=== PATIENT | female | born 1970 | race Caucasian/White ===

== ENCOUNTER 2018-10-09 18:53 | Observation (INO) | payer SELFPAY ==
--- NOTE | 2018-10-09 19:49 | RAD REPORT ---
EXAM DESCRIPTION: RAD - Chest Single View - 10/09/2018 7:42 pm CLINICAL HISTORY: CHEST PAIN Chest pain. COMPARISON: No comparisons FINDINGS: Portable technique limits examination quality. Linear subsegmental atelectasis with trace pleural fluid noted left base. The lungs are otherwise jaime ar. The heart is upper limit normal in size with multilead pacer/defibrillator device present. No dis placed fractures. IMPRESSION: No acute intrathoracic process suspected.
[2018-10-09] MEDS ORDERED: FENTANYL CITR 100 MCG/2 ML ONE (20:20)
[2018-10-09 20:21] LABS: Absolute Lymphocytes (CBC) 2.2 K/uL (0.7-4.9); Absolute Monocytes 1.1 K/uL (0.1-1.3); Absolute Neutrophil 9.2 K/uL (1.8-8.0); Basophils % 0.9 % (0-1.3); Eosinophils % 0.1 % (0-4.4); Hematocrit 43.3 % (36.0-45.0); Lymphocytes % 17.2 % (15.3-44.8); MCH 33.1 pg (27.0-35.0); MCV 99.5 fL (80-100); MPV 10.8 fL (7.6-11.3); RBC Red Blood Cell Count 4.35 M/uL (3.86-4.86)
[2018-10-09 20:23] LABS: Protime INR 1.03
[2018-10-09 20:48] LABS: ALT/SGPT 42 U/L (12-78); AST/SGOT 50 U/L (15-37); Alkaline Phosphatase 238 U/L (45-117); BUN Blood Urea Nitrogen 5 mg/dL (7-18); Bicarbonate 25 mmol/L (21-32); Bilirubin Direct < 0.1 mg/dL (0-0.2); Bilirubin Total 0.3 mg/dL (0.2-1.0); Glucose Level 84 mg/dL (74-106); Magnesium 2.1 mg/dL (1.8-2.4); NT PRO-BNP 2753 pg/mL (<125); Potassium 3.3 mmol/L (3.5-5.1); Protein, Total 7.4 g/dL (6.4-8.2); Sodium Level 144 mmol/L (136-145); Troponin (Emerg Dept Use Only) 0.29 ng/mL (0.0-0.045)
--- NOTE | 2018-10-09 22:28 | ER ---
Nurse's Notes [facility] Emergency Department Name: Luly Gastelum Age: 48 yrs Sex: Female : 1970 Arrival Date: 10/09/2018 Time: 18:54 Bed 4 Private MD: Diagnosis: Chest pain, unspecified Presentation: 10/09 18:56 Presenting complaint: Patient states: L sided chest pain that began art approx 1 pm ph today, SOB, pain w/ respiration, and nausea, reports cardiac hx. Transition of care: patient was not received from another setting of care. Onset of symptoms was October 09, 2018. Risk Assessment: Do you want to hurt yourself or someone else? Patient reports no desire to harm self or others. Care prior to arrival: None. 18:56 Method Of Arrival: Ambulatory ph 18:56 Acuity: ALYX 2 ph 19:14 Initial Sepsis Screen: Does the patient meet any 2 criteria? No. Patient's initial ak1 sepsis screen is negative. Does the patient have a suspected source of infection? No. Patient's initial sepsis screen is negative. Historical: - Allergies: 19:02 No Known Allergies; ph - Home Meds: 19:20 metoprolol tartrate 25 mg Oral tab 1 tab 2 times per day [Active]; Lasix 40 mg Oral tab ak1 1 tab as needed [Active]; - PMHx: 19:02 Hypertrophic obstructive cardiomyopathy; Myocardial infarction; ph - PSHx: 19:02 pacemaker/defibrillator; ph - Immunization history:: Adult Immunizations unknown. - Social history:: Smoking status: Patient uses tobacco products, smokes one pack cigarettes per day. - Ebola Screening: : No symptoms or risks identified at this time. Screenin:15 Abuse screen: Denies threats or abuse. Denies injuries from another. Nutritional ak1 screening: No deficits noted. Tuberculosis screening: No symptoms or risk factors identified. Fall Risk None identified. Assessment: 19:12 General: Appears in no apparent distress. Behavior is calm, cooperative. Pain: ak1 Complains of pain in chest Pain does not radiate. Pain began 1300 today. Neuro: No deficits noted. Cardiovascular: Reports chest pain, nausea, since 1300 today. Respiratory: No deficits noted. GI: No signs and/or symptoms were reported involving the gastrointestinal system. : No signs and/or symptoms were reported regarding the genitourinary system. EENT: No signs and/or symptoms were reported regarding the EENT system. Derm: No signs and/or symptoms reported regarding the dermatologic system. Musculoskeletal: No signs and/or symptoms reported regarding the musculoskeletal system. 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 ak1 21:13 Reassessment: Patient appears in no apparent distress at this time. No changes from ak1 previously documented assessment. Patient and/or family updated on plan of care and expected duration. Pain level reassessed. Patient is alert, oriented x 3, equal unlabored respirations, skin warm/dry/pink. Patient states symptoms have improved. Vital Signs: 19:00 BP 133 / 90; Pulse 120; Resp 24; Temp 98.3; Pulse Ox 100% on R/A; Weight 47.63 kg; ph Height 5 ft. 4 in. (162.56 cm); Pain 8/10; 19:12 BP 123 / 83; Pulse 94; Resp 20; Pulse Ox 99% on R/A; ak1 20:18 BP 119 / 73; Pulse 89; Resp 20; Temp 98.3; Pulse Ox 98% on R/A; Pain 5/10; ak1 21:13 BP 122 / 77; Pulse 85; Resp 16; Pulse Ox 98% on R/A; ak1 23:20 BP 112 / 80; Pulse 72; Resp 16; Temp 98.1; Pulse Ox 98% on R/A; Pain 3/10; ak1 19:00 Body Mass Index 18.02 (47.63 kg, 162.56 cm) ph ED Course: 18:54 Patient arrived in ED. rg4 19:00 Triage completed. ph 19:02 Arm band placed on. ph 19:11 Ben Acosta MD is Attending Physician. gs 19:11 Callie Lynn, NILESH is Primary Nurse. ak1 19:11 Inserted saline lock: 20 gauge in left antecubital area, using aseptic technique. Blood ak1 collected. Patient maintains SpO2 saturation greater than 95% on room air. 19:14 Patient has correct armband on for positive identification. Placed in gown. Bed in low ak1 position. Call light in reach. Side rails up X 1. Adult w/ patient. potline monitor on. Pulse ox on. NIBP on. Door closed. Warm blanket given. 19:40 XRAY Chest (1 view) In Process Unspecified. EDMS 22:27 Rashard Heart MD is Hospitalizing Provider. gs 22:44 No provider procedures requiring assistance completed. Patient admitted, IV remains in ak1 place. Administered Medications: 20:17 Drug: fentaNYL (PF) 25 mcg Route: IVP; Site: left antecubital; ak1 21:14 Follow up: Response: No adverse reaction; Pain is decreased ak1 23:19 Drug: Aspirin Chewable Tablet 324 mg Route: PO; ak1 23:19 Follow up: Response: No adverse reaction ak1 Outcome: 22:27 Decision to Hospitalize by Provider. gs 23:21 Condition: stable ak1 23:21 Instructed on the need for admit. 10/10 00:09 Admitted to Tele accompanied by tech, via wheelchair, room 412, with chart. ak1 00:12 Patient left the ED. ak1 Signatures: Dispatcher [employer] EDMS Callie Lynn RN RN ak1 Jessy Leger RN RN ph Garcia, Rubi rg4 Ben Acosta MD MD gs
--- NOTE | 2018-10-09 22:28 | EDPHYS ---
Physician Documentation [facility] Name: Luly Gastelum Age: 48 yrs Sex: Female : 1970 Arrival Date: 10/09/2018 Time: 18:54 Bed 4 Private MD: ED Physician Ben Acosta HPI: 10/09 22:53 This 48 yrs old Female presents to ER via Ambulatory with complaints of Chest gs Pain. 22:53 The patient or guardian reports chest pain that is located primarily in the anterior gs chest wall. Onset: this morning. The pain does not radiate. Associated signs and symptoms: Pertinent positives: shortness of breath. The chest pain is described as a heaviness. Duration: The patient or guardian reports a single episode, that is still ongoing, and unchanged. Modifying factors: The symptoms are alleviated by nothing. the symptoms are aggravated by nothing. Severity of pain: At its worst the pain was moderate in the emergency department the pain is unchanged. The patient has experienced similar episodes in the past, multiple times, with the last episode occurring yesterday. Historical: - Allergies: 19:02 No Known Allergies; ph - Home Meds: 19:20 metoprolol tartrate 25 mg Oral tab 1 tab 2 times per day [Active]; Lasix 40 mg Oral tab ak1 1 tab as needed [Active]; - PMHx: 19:02 Hypertrophic obstructive cardiomyopathy; Myocardial infarction; ph - PSHx: 19:02 pacemaker/defibrillator; ph - Immunization history:: Adult Immunizations unknown. - Social history:: Smoking status: Patient uses tobacco products, smokes one pack cigarettes per day. - Ebola Screening: : No symptoms or risks identified at this time. ROS: 22:53 All other systems are negative. gs Exam: 22:53 Head/Face: Normocephalic, atraumatic. Eyes: Pupils equal round and reactive to light, gs extra-ocular motions intact. Lids and lashes normal. Conjunctiva and sclera are non-icteric and not injected. Cornea within normal limits. Periorbital areas with no swelling, redness, or edema. ENT: Nares patent. No nasal discharge, no septal abnormalities noted. Tympanic membranes are normal and external auditory canals are clear. Oropharynx with no redness, swelling, or masses, exudates, or evidence of obstruction, uvula midline. Mucous membranes moist. Neck: Trachea midline, no thyromegaly or masses palpated, and no cervical lymphadenopathy. Supple, full range of motion without nuchal rigidity, or vertebral point tenderness. No Meningismus. Chest/axilla: Normal chest wall appearance and motion. Nontender with no deformity. No lesions are appreciated. Cardiovascular: Regular rate and rhythm with a normal S1 and S2. No gallops, murmurs, or rubs. Normal PMI, no JVD. No pulse deficits. Respiratory: Lungs have equal breath sounds bilaterally, clear to auscultation and percussion. No rales, rhonchi or wheezes noted. No increased work of breathing, no retractions or nasal flaring. Abdomen/GI: Soft, non-tender, with normal bowel sounds. No distension or tympany. No guarding or rebound. No evidence of tenderness throughout. Back: No spinal tenderness. No costovertebral tenderness. Full range of motion. Skin: Warm, dry with normal turgor. Normal color with no rashes, no lesions, and no evidence of cellulitis. MS/ Extremity: Pulses equal, no cyanosis. Neurovascular intact. Full, normal range of motion. Neuro: Awake and alert, GCS 15, oriented to person, place, time, and situation. Cranial nerves II-XII grossly intact. Motor strength 5/5 in all extremities. Sensory grossly intact. Cerebellar exam normal. Normal gait. 22:53 Constitutional: The patient appears alert, awake. 22:53 ECG was reviewed by the Attending Physician. Vital Signs: 19:00 BP 133 / 90; Pulse 120; Resp 24; Temp 98.3; Pulse Ox 100% on R/A; Weight 47.63 kg; ph Height 5 ft. 4 in. (162.56 cm); Pain 8/10; 19:12 BP 123 / 83; Pulse 94; Resp 20; Pulse Ox 99% on R/A; ak1 20:18 BP 119 / 73; Pulse 89; Resp 20; Temp 98.3; Pulse Ox 98% on R/A; Pain 5/10; ak1 21:13 BP 122 / 77; Pulse 85; Resp 16; Pulse Ox 98% on R/A; ak1 23:20 BP 112 / 80; Pulse 72; Resp 16; Temp 98.1; Pulse Ox 98% on R/A; Pain 3; ak1 19:00 Body Mass Index 18.02 (47.63 kg, 162.56 cm) ph MDM: 19:28 Patient medically screened. 22:53 Differential diagnosis: acute myocardial infarction, coronary artery disease chest wall gs pain, unstable angina. The patient was given aspirin in the Emergency Department. Data reviewed: vital signs, nurses notes. Counseling: I had a detailed discussion with the patient and/or guardian regarding: the historical points, exam findings, and any diagnostic results supporting the discharge/admit diagnosis, lab results, radiology results, the need for outpatient follow up. Response to treatment: the patient's symptoms have resolved after treatment, the patient's pain is gone. 10/09 19:29 Order name: Basic Metabolic Panel; Complete Time: 20:55 10/09 19:29 Order name: CBC with Diff; Complete Time: 20:55 10/09 19:29 Order name: LFT's; Complete Time: 20:55 10/09 19:29 Order name: Magnesium; Complete Time: 20:55 10/09 19:29 Order name: NT PRO-BNP; Complete Time: 20:55 10/09 19:29 Order name: PT-INR; Complete Time: 20:55 10/09 19:29 Order name: Troponin (emerg Dept Use Only); Complete Time: 20:55 10/09 19:29 Order name: XRAY Chest (1 view); Complete Time: 20:07 10/09 19:29 Order name: EKG; Complete Time: 19:30 10/09 19:29 Order name: Cardiac monitoring; Complete Time: 20:07 10/09 19:29 Order name: EKG - Nurse/Tech; Complete Time: 20:09 10/09 19:29 Order name: IV Saline Lock; Complete Time: 20:09 10/09 19:29 Order name: Labs collected and sent; Complete Time: 20:10 10/09 19:29 Order name: O2 Per Protocol; Complete Time: 20:10 10/09 19:29 Order name: O2 Sat Monitoring; Complete Time: 20:10 EC:53 Rate is 101 beats/min. Rhythm is regular. IA interval is normal. QRS interval is gs normal. QT interval is normal. T waves are Inverted. Clinical impression: NSR w/ Non-specific ST/T Changes. Interpreted by me. Administered Medications: 20:17 Drug: fentaNYL (PF) 25 mcg Route: IVP; Site: left antecubital; ak1 21:14 Follow up: Response: No adverse reaction; Pain is decreased ak1 23:19 Drug: Aspirin Chewable Tablet 324 mg Route: PO; ak1 23:19 Follow up: Response: No adverse reaction ak1 Disposition: 22:53 Critical Care:. Disposition: 10/09/18 22:27 Hospitalization ordered by Rashard Heart for Observation. Preliminary diagnosis is Chest pain, unspecified. - Bed requested for Telemetry/MedSurg (observation). - Status is Observation. ak1 - Condition is Stable. - Problem is new. - Symptoms have improved. UTI on Admission? No Critical care time excluding procedures: 22:53 Critical care time: Bedside Care: 10 minutes, Consultation: 10 minutes, Family gs Intervention: 10 minutes. Total time: 30 minutes Signatures: Dispatcher [employer] EDZahira Alves RN RN bb Krenek, Amber, RN RN akJessy Ortiz RN RN Ben Acosta MD MD Corrections: (The following items were deleted from the chart) 23:49 22:27 Hospitalization Ordered by Rashard Heart MD for Observation. Preliminary bb diagnosis is Chest pain, unspecified. Bed requested for Telemetry/MedSurg (observation). Status is Observation. Condition is Stable. Problem is new. Symptoms have improved. UTI on Admission? No. gs 10/10 00:12 10/09 23:49 10/09/2018 22:27 Hospitalization Ordered by Rashard Heart MD for ak1 Observation. Preliminary diagnosis is Chest pain, unspecified. Bed requested for Telemetry/MedSurg (observation). Status is Observation. Condition is Stable. Problem is new. Symptoms have improved. UTI on Admission? No. bb
[2018-10-09] MEDS ORDERED: ASPIRIN 81 MG CHEWABLE TABLET ONE (23:25)
[2018-10-10] MEDS ORDERED: ACETAMINOPHEN 500 MG TAB PO PRN (00:16)
[2018-10-10 00:57] VITALS: O2SAT 98
[2018-10-10 01:34] LABS: Troponin I 0.34 ng/mL (0.0-0.045)
[2018-10-10 02:27] VITALS: BMI 18.0
[2018-10-10 04:20] LABS: Urine Appearance CLEAR; Urine Blood NEGATIVE (NEG); Urine Color DK YELLOW; Urine Glucose NEGATIVE (NEG); Urine Protein TRACE (NEG); Urine Specific Gravity >=1.030 (1.005-1.030); Urine Urobilinogen 0.2 mg/dL (0.2-1.0)
[2018-10-10 04:28] LABS: Urine Bilirubin NR (NEG); Urine Microscopic Reflex ORDER UMIC
[2018-10-10] MEDS: TRAMADOL HCL 50 MG TAB PO PRN ×3 (04:51→21:35)
--- NOTE | 2018-10-10 05:09 | P.HP ---
Certification for Inpatient Patient admitted to: Observation With expected LOS: <2 Midnights Practitioner: I am a practitioner with admitting privileges, knowledge of patient current condition, hospital course, and medical plan of care. Services: Services provided to patient in accordance with Admission requirements found in Title 42 Section 412.3 of the Code of Federal Regulations Patient History Date of Service: 10/09/18 Reason for admission: Chest pain History of Present Illness: Ms Nirav Morales ear a history of HOCM, ICD placement, who came to ER complaining of chest pain starting a few hr ago. The pain was 7/10 of intensity located retrosternally, pressure-like, not radiated, associated with shortness of breath. She denied any nausea or diaphoresis. She has never had this kind of pain before. Lab work remarkable for leukocytosis, hypokalemia, troponin I elevation. EKG sinus rate with nonspecific ST-T abnormality. Allergies No Known Allergies Allergy (Verified 10/10/18 00:41) Home medications list reviewed: Yes Home Medications: Furosemide [Lasix] 1 tab PO BID 10/10/18 Metoprolol Tartrate 1 tab PO BID 10/10/18 - Past Medical/Surgical History Diabetic: No -: myocardial infarction -: hypertrophic obstructive cardiopathy -: pacemaker, cardioverted, defibrillator -: partial hysterectomy -: removal of tumor on the neck April 2018 -: Laparoscopy ovarian cyst removed - Family History Mother -: Heart disease, Other (see notes) Notes: heart transplant Father -: Cancer - Social History Smoking Status: Current every day smoker Counseled patient to stop smoking for: less than 10 minutes Alcohol use: Yes CD- Drugs: No Caffeine use: Yes Place of Residence: Home Review of Systems 10-point ROS is otherwise unremarkable Physical Examination - Vital Signs Temperature: 97.4 F Blood Pressure: 106/55 Pulse: 60 Respirations: 20 Pulse Ox (%): 95 - Physical Exam General: Alert, In no apparent distress HEENT: Atraumatic, PERRLA, Mucous membr. moist/pink, EOMI, Sclerae nonicteric Neck: Supple, 2+ carotid pulse no bruit, No LAD, Without JVD or thyroid abnormality Respiratory: Clear to auscultation bilaterally, Normal air movement Cardiovascular: Regular rate/rhythm, Normal S1 S2, Systolic murmur Gastrointestinal: Normal bowel sounds, No tenderness Musculoskeletal: No tenderness Integumentary: No rashes Neurological: Normal speech, Normal strength at 5/5 x4 extr, Normal tone, Normal affect Lymphatics: No axilla or inguinal lymphadenopathy - Studies Laboratory Data (last 24 hrs) 10/09/18 20:00: PT 12.2, INR 1.03 10/09/18 20:00: WBC 12.6 H, Hgb 14.4, Hct 43.3, Plt Count 263 10/09/18 20:00: Sodium 144, Potassium 3.3 L, BUN 5 L, Creatinine 0.60, Glucose 84, Magnesium 2.1, Total Bilirubin 0.3, AST 50 H, ALT 42, Alkaline Phosphatase 238 H Assessment and Plan - Problems (Diagnosis) (1) Chest pain Current Visit: Yes Status: Acute Qualifiers: Chest pain type: precordial pain Qualified Code(s): R07.2 - Precordial pain (2) NSTEMI (non-ST elevated myocardial infarction) Current Visit: Yes Status: Acute (3) HOCM (hypertrophic obstructive cardiomyopathy) Current Visit: Yes Status: Acute - Plan The patient will be admitted to the hospital due to typical chest pain with elevated troponin I without ST-elevation EKG, consistent with non ST elevation GA. Will order statins, aspirin, beta-victor hugo (if BP allows it), full anticoagulation. Will order an ECHO, consult Cardiology team. - Advance Directives Does patient have a Living Will: No Does patient have a Durable POA for Healthcare: No - Code Status/Comfort Care Code Status Assessed: Yes Code Status: Full Code
[2018-10-10 05:36] LABS: Urine Amorphous Sediment TRACE /HPF (NONE SEEN); Urine Bacteria <20 /HPF (<20); Urine Culture Reflex Order REFLEXED; Urine Mucus HEAVY /HPF (NONE SEEN); Urine RBC NONE SEEN /HPF (NONE SEEN)
[2018-10-10] MEDS: ENOXAPARIN 60 MG/0.6 ML SQ SCH ×2 (06:03→17:28)
--- NOTE | 2018-10-10 06:04 | EKG ---
Test Date: 2018-10-10 Test Time: 03:54:22 Display Screen Fabricator: RT MEASUREMENT RESULTS: Intervals: Rate: 63 MO: 188 QRSD: 90 QT: 478 QTc: 489 [place]: P: 61 MO: 188 QRS: 26 T: 132 INTERPRETIVE STATEMENTS: Normal sinus rhythm Possible Left atrial enlargement ST & T wave abnormality, consider lateral ischemia Prolonged QT Abnormal ECG No previous ECG available for comparison Electronically Signed On 10-10-18 06:03:30 ADVANCED CLINICAL SPECIALIST by Loi Kaminski
[2018-10-10] MEDS ORDERED: INFLUENZA VACCINE (for 3y+) 0.5 ML DOSE IMVAC ONE (08:00)
[2018-10-10] MEDS ORDERED: ENOXAPARIN 40 MG/0.4 ML SQ SCH (09:00)
[2018-10-10] MEDS ORDERED: NA CHLORIDE 0.9% 500 ML IV ONE (09:30)
[2018-10-10] MEDS: ASPIRIN EC 81 MG TAB PO SCH (09:40)
--- NOTE | 2018-10-10 10:10 | EKG ---
Test Date: 2018-10-09 Test Time: 19:08:22 Missile Technician: PURA MEASUREMENT RESULTS: Intervals: Rate: 101 [place]: 170 QRSD: 90 QT: 378 QTc: 490 [place]: P: 73 OH: 170 QRS: 44 T: 90 INTERPRETIVE STATEMENTS: Sinus tachycardia Left atrial enlargement Nonspecific T wave abnormality Abnormal ECG No previous ECG available for comparison Electronically Signed On 10-10-18 10:09:22 SEISMOGRAPH COMPUTER by Loi Kaminski
--- NOTE | 2018-10-10 11:26 | ECHO ---
HEIGHT: 5 ft 4 in WEIGHT: 105 lb 0 oz DATE OF STUDY: 10/10/[address]: Rashard Dixon MD 2-DIMENSIONAL: YES M.MODE: YES DOPPLER: YES COLOR FLOW: YES TDS: NO PORTABLE: NO DEFINITY: NO BUBBLE STUDY: NO DIAGNOSIS: CHEST PAIN CARDIAC HISTORY: CATHERIZATION: NO SURGERY: YES PROSTHETIC VALVE: NO PACEMAKER: YES MEASUREMENTS (cm) DIASTOLIC (NORMALS) SYSTOLIC (NORMALS) IVSd 1.6 (0.6-1.2) LA Diam 4.7 (1.9-4.0) LVEF 60-69% LVIDd 3.9 (3.5-5.7) LVIDs 2.8 (2.0-3.5) %FS 29% LVPWd 0.8 (0.6-1.2) Ao Diam 2.9 (2.0-3.7) 2 DIMENSIONAL ASSESSMENT: RIGHT ATRIUM: PACEMAKER LEFT ATRIUM: DILATED RIGHT VENTRICLE: PACEMAKER LEFT VENTRICLE: ASYMETRICAL SEPTAL HYPERTROPHY TRICUSPID VALVE: NORMAL MITRAL VALVE: SYSTOLIC ANTERIOR MOTION PULMONIC VALVE: NORMAL AORTIC VALVE: NORMAL PERICARDIAL EFFUSION: NONE AORTIC ROOT: NORMAL LEFT VENTRICULAR WALL MOTION: NORMAL DOPPLER/COLOR FLOW: MILD TRICUSPID REGURGITATION. MILD PULMONARY HYPERTENSION. ESTIMATED RIGHT VENTRICULAR SYSTOLIC PRESSURE 45 mmHg. IMPAIRED LEFT VENTRICULAR RELAXATION. NORMAL LEFT VENTRICULAR OUTFLOW TRACT GRADIENT <5 mmHg. COMMENTS: NORMAL LEFT VENTRICULAR EJECTION FRACTION. HYPERTROPHIC CARDIOMYOPATHY. PACEMAKER CATHETER IN RIGHT VENTRICLE. DILATE LEFT ATRIUM. IMPAIRED LEFT VENTRICULAR RELAXATION. MILD PULMONARY HYPERTENSION. TECHNOLOGIST: Hari KAUR
[2018-10-10] MEDS: DILTIAZEM HCL 60 MG TAB PO SCH ×2 (11:57→17:28)
--- NOTE | 2018-10-10 14:09 | CON ---
CARDIOLOGY CONSULT Chief Complaint: Chest pain. History Of Present Illness: Mrs. Gastelum has a long history of hypertrophic cardiomyopathy, very strong gene, several family members had it. Her sister and her aunt both had hypertrophic cardiomyopathy resulting in heart transplants. The patient has normal coronary arteries according to the cardiac cath within the past 2 years. She has a defibrillator, likely her second one. She is not known to have a decreased ejection fraction. Her only medicines are metoprolol and Lasix. She is a regular cigarette smoker and minimal alcohol. No illegal drugs. She came to the hospital because of chest pain. The pain has been there constantly for several days before she came. She has troponins that are elevated at the range of 0.3 to 0.4 and all of them are same so far, not a rise and fall pattern as one would see with an acute coronary syndrome. Physical Examination: General: She is 5 feet 4 inches, 105 pounds. HEENT: Normal. Lungs: Clear. Heart Exam: There is a systolic murmur. No diastolic murmur. Abdomen: Soft. Extremities: No edema, cyanosis, clubbing. Distal pulses palpable. Electrocardiogram shows sinus rhythm, left atrial abnormality, diffuse ST and T- wave abnormality. Impression: The patient's chest pain is from the cardiomyopathy she has. I think we can try diltiazem. I will talk with the [facility] transplant team that follows her to see if I can learn any other details which may be important. I will interrogate the defibrillator. I do not think we need to engage in a cardiac cath to rule out CAD. I just do not think that is what this is involved now. after seeing her echo we can see if she could tolerate diltiazem, it might be a better agent at controlling the chest pain than the metoprolol. MATTHEW/GAB Voice ID: [id number] Report ID: [id number] BRET
[2018-10-10] MEDS: FUROSEMIDE 40 MG TABLET PO SCH (17:28)
--- NOTE | 2018-10-10 18:23 | PN ---
Date of Progress Note: 10/10/2018 Subjective: The patient is seen and examined. Chart reviewed, and case discussed with RN and Dr. Kaminski. The patient states her chest pain has improved. Review of Systems: Negative except as above. Medications: List reviewed. Physical Examination: Vital Signs: Temperature 98.7, heart rate 70, blood pressure 112/79, respirations 16, O2 of 96% on room air. General: Awake, alert, oriented x3, in some mild distress, appears older than stated age. An ill-appearing female, cachectic, BMI 18. CV: S1 and S2. Regular rate and rhythm. Peripheral pulses present. Respiratory: Moving air well bilaterally. No wheezing or stridor. Gastrointestinal: Abdomen is soft, nontender, nondistended. Positive bowel sounds. No guarding or rigidity. Extremities: No clubbing, cyanosis, or edema. No calf tenderness. Neurologic: Nonfocal. Laboratory Data: Troponin 0.29, 0.34, 0.34. Triglycerides 52, cholesterol 67, LDL 22, HDL 35. Echocardiogram shows EF 60% to 69%, hypertrophic cardiomyopathy , pacemaker catheter in right ventricle, dilated left atrium, mild pulmonary hypertension. Assessment: 1. Chest pain Improved. No [id number] myocardial infarction per Cardiology. 2. Elevated troponin. No [id number] myocardial infarction. Related to her hypertrophic obstructive cardiomyopathy. The patient does not need catheterization at this time. 3. Status post pacemaker and defibrillator. The patient to be started on diltiazem. 4. Failure to thrive, BMI 18. 5. Neutrophilic leukocytosis. 6. Hypokalemia. We will replace and monitor. 7. Elevated liver enzymes. We will continue to monitor. 8. Gastrointestinal and deep venous thrombosis prophylaxis addressed. Plan: We will continue with home medications as appropriate. Appreciate Dr. Kaminski' input. We will monitor closely. Likely discharge in the next 24 to 48 hours depending on clinical response. /GAB Voice ID: [id number] Report ID: [id number] BRET
[2018-10-10] MEDS ORDERED: METOPROLOL TAR 25 MG TAB PO SCH (21:00)
[2018-10-11] MEDS: DILTIAZEM HCL 60 MG TAB PO SCH ×2 (00:35→05:45)
[2018-10-11] MEDS: TRAMADOL HCL 50 MG TAB PO PRN (04:51)
[2018-10-11] MEDS: ENOXAPARIN 60 MG/0.6 ML SQ SCH (05:45)
[2018-10-11 06:39] LABS: Absolute Lymphocytes (CBC) 1.2 K/uL (0.7-4.9); Absolute Monocytes 0.5 K/uL (0.1-1.3); Absolute Neutrophil 3.7 K/uL (1.8-8.0); Basophils % 0.8 % (0-1.3); Eosinophils % 0.7 % (0-4.4); Hematocrit 38.8 % (36.0-45.0); Lymphocytes % 22.2 % (15.3-44.8); MCH 33.3 pg (27.0-35.0); MCV 100.4 fL (80-100); MPV 10.3 fL (7.6-11.3); Monocytes % 9.4 % (3.3-12.3); RBC Red Blood Cell Count 3.86 M/uL (3.86-4.86)
[2018-10-11 06:46] LABS: ALT/SGPT 34 U/L (12-78); AST/SGOT 43 U/L (15-37); Albumin 2.6 g/dL (3.4-5.0); Alkaline Phosphatase 208 U/L (45-117); BUN Blood Urea Nitrogen 3 mg/dL (7-18); Bicarbonate 28 mmol/L (21-32); Bilirubin Total 0.4 mg/dL (0.2-1.0); Glucose Level 79 mg/dL (74-106); Protein, Total 6.3 g/dL (6.4-8.2); Sodium Level 144 mmol/L (136-145)
[2018-10-11] MEDS: ASPIRIN EC 81 MG TAB PO SCH (08:13)
[2018-10-11] MEDS: FUROSEMIDE 40 MG TABLET PO SCH (08:18)
[2018-10-11 08:19] VITALS: BP 103/68
[2018-10-11 08:54] VITALS: TEMP 97
[2018-10-11] MEDS ORDERED: ENSURE HIGH PROTEIN 237 ML CAN PO SCH (09:00)
[2018-10-11] MEDS ORDERED: POTASSIUM CL SA 10 MEQ TAB PO ONE (09:13)
--- NOTE | 2018-10-12 04:56 | DS ---
Date of Discharge: 10/11/2018 Integrative Medicine Physician: Loi Kaminski M.D., with Cardiology. Discharge Diagnoses: 1.Chest pain, resolved. 2.Elevated troponin, not ST-elevation myocardial infarction. 3.Status post pacemaker/defibrillator, interrogation showing fracture lead. 4.Hypertrophic cardiomyopathy with switch over to Cardizem. 5.Failure to thrive. Body mass index 18. 6.Neutrophilic leukocytosis, resolved. 7.Hypokalemia, replaced. 8.Elevated liver enzymes, improving. Hospital Course: The patient is a 48-year-old female with past medical history of hypertrophic cardi omyopathy and ICD placement, who comes in with chest pain. The patient had elevated troponin levels. However, Cardiology did not feel that this was NSTEMI and did not recommend any cardiac catheteriza tion related to her hypertrophic cardiomyopathy. The patient's pacemaker/defibrillator was interroga kelvin and did have a fractured lead. Dr. Kaminski recommended following up with the production leader, Dr. Jara, as outpatient. The patient's chest pain resolved. She did have some hypokalemia, which was replaced. She had mild elevation of her AST, which was trending down. The patient no longer levy d any chest pain. She was not having any nausea or vomiting. She did have some elevated white blood cell count with neutrophilia, which resolved, likely related to acute phase reactant. Her urine cul ture showed mixed sammy. The patient's echocardiogram showed EF of 60% to 69%, hypertrophic cardiomy opathy, and mild pulmonary hypertension. The patient was then cleared for discharge. She is to foll ow up with Dr. Kaminski immediately after discharge and given information to follow up with Dr. Jara, production leader, day after discharge. Medications: As per medication reconciliation list. The patient will be switched over to diltiazem. Stop metoprolol. She will receive some potassium replacement. Discharge Instructions: The patient is to have repeat potassium level in 1 week. Return to ER for w orsening condition. Follow up with fixture fabricator repairer, Dr. Kaminski, immediately after discharge. Follow up with medical front desk specialist, Dr. Jara, tomorrow. Establish care with PCP as soon as possible. Diet: Heart healthy. Activity: As tolerated. Physical Examination: General: Awake, alert, oriented, in no acute distress. CV: S1, S2. Normal pulses present. Respiratory: Moving air well bilaterally. Abdomen: Soft, nontender, and nondistended. Positive bowel sounds. Extremities: No clubbing, cyanosis, or edema. Neurologic: Nonfocal. SA/MODL Voice ID: [id number] Report ID: [id number]
--- NOTE | 2018-10-15 10:28 | PN ---
Date of Progress Note: 10/11/2018 The patient was seen on 10/11/2018 in followup. The patient had been seen by Dr. Kaminski on 8. She has a history of hypertrophic obstructive cardiomyopathy. Dr. Kaminski changed her beta-blocke rs to diltiazem because of chest pain. Defibrillator check showed a fracture of one of the leads. T he patient wants to go home today. She is going to stop by the office today, so we can make arrangem ents for her to see Dr. [facility] for her AICD dysfunction. OLI/GAB Voice ID: [id number] Report ID: [id number]
== END 2018-10-11 12:10 | disposition home or self-care (01) ==
LOC: ER 18:53 → ERHOLD 23:04 → 4TH 10-10 00:04
PROVIDERS: ADMIT Internal Medicine; ATTEND Internal Medicine
DX: R07.9 Chest pain, unspecified (principal); R79.89 Other specified abnormal findings of blood chemistry; E87.6 Hypokalemia; Z95.810 Presence of automatic (implantable) cardiac defibrillator; R62.7 Adult failure to thrive; D72.828 Other elevated white blood cell count; R74.8 Abnormal levels of other serum enzymes; I42.2 Other hypertrophic cardiomyopathy; Z23 Encounter for immunization
CPT/HCPCS: 36415; 71045; 80048; 80053; 80061; 80076; 81003; 81015; 83735; 83880; 84484; 85025; 85610; 87077; 87086; 87088; 87186; 93005; 93306; 96374; 99285; G0008; G0378; J1650; J3010; Q2035

== ENCOUNTER 2022-03-25 16:11 | Inpatient (IN) | payer SELFPAY ==
--- OUTSIDE RECORDS SUMMARY | 2022-03-25 16:13 | XMS REPORT | Continuity of Care Document ---
:1970 Author Organization [facility] t Address [address] [place] [address] Care Team Providers Name Role Phone Natividad MOSS, [facility] Primary Care Physician [phone] LADY NUNN Attending Clinician Unavailable [place] Kumari MD Attending Clinician MAR Attending Clinician Unavailable RODOLFO Attending Clinician Unavailable PAU Attending Clinician Unavailable BRIAN Attending Clinician Unavailable MD TANIA Attending Clinician Unavailable TANIA Attending Clinician Unavailable YASMINE Attending Clinician Unavailable MD RILEY UNDERWOOD Attending Clinician Unavailable Delonte_Tami Attending Clinician Unavailable BRIAN Admitting Clinician Unavailable MD TANIA Admitting Clinician Unavailable YASMINE Admitting Clinician Unavailable MD RILEY UNDERWOOD Admitting Clinician Unavailable Vini Admitting Clinician Unavailable Payers Payer Name Policy Type Policy Number Effective Date Expiration Date aLra ANDINO [id number] 2020 00:00:00 Problems Condition Condition Condition Status Onset Resolution Last Treating Co mments Source Name Details Category Date Date Treatment Clinician Date Pain in Pain in Problem Active 2019-11 [place] lower Left Lower 0-13 da limb Limb 00:00: Medical 00 Group Unexplaine Unexplaine Problem Active 2019-11 [facility] d weight d Weight 0-13 da loss Loss 00:00: Medical 00 Group Administra Administra Problem Active 2019-11 [facility] tion of tion of 0-13 da influenza Influenza 00:00: Medi per vaccine Vaccine 00 Group Administra Administra Problem Active 2019-11 [facility] tion of tion of 0-13 da diphtheria Diphtheria 00:00: Me dical , , 00 Group pertussis, Pertussis, and and tetanus Tetanus vaccine Vaccine Permanent Permanent Problem Active 2019-11 [facility] agor cardiac Cardiac 0-13 da pacemaker Pacemaker 00:00: Medi per 00 Group Adult Adult Problem Active 2019-11 [facility] 0-[facility] da examinatio Examinatio 00:00: Me dical n n 00 Group AICD lead AICD lead Disease Active [facility] displ[facility] displaceme 9-05 [facility] - nt nt 00:00: Medical 00 Center Chest wall Chest wall Disease Active [facility] pain [facility] Anxiety Anxiety Disease Active 2011-[address] [facility] associated associated 0-17 Stephanie kes - with with 00:00: Medical depression depression 00 Ce nter 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 Social History Social Habit Start Date Stop Date Quantity Comments Source History of tobacco Cigarette [facility] use [facility] Tobacco Comment off/on for [address] [facility] 4 m[facility] Alcohol Comment socially [facility] St [facility] Cigarettes smoked 2017-06-15 2017-06-[address] [facility] - current (pack per 00:00:00 00:00:00 Medical Center day) - Reported Cigarette 2017-06-15 2017-06-[address] [facility] - pack-years 00:00:00 00:00:00 [facility] Tobacco use and 2017-06-15 2017-06-[address] [facility] kes - exposure 00:00:00 00:00:00 [facility] Alcohol intake 2017-06-15 2017-06-15 Current drinker SAJAN S [facility] - 00:00:00 00:00:00 of alcohol Medical Center (finding) Sex Assigned At [birth year] [facility] 00:00:00 00:00:00 Smoking Status Start Date Stop Date Source Tobacco smoking consumption ID H ealth unknown Current every day smoker 2017-06-15 00:00:[address] [facility] Medications Ordered Filled Start Stop Current Ordering Indication Dosage Frequency Signature Comments Components Source Medication Medication Date Date Medication? Clinician (SIG) Name Name aspirin 325 Yes 325mg QD Take [address] MG tablet 9-06 mg by [facility] - 17:44: mouth Medical 17 daily. Center aspirin 325 Yes 325mg QD Take [address] MG tablet 9-06 mg by [facility] - 17:44: mouth Medical 17 daily. [place] clonazePAM 2011-11 Yes 1{tbl} QD Take [address] [address] (KLONOPIN) 0-16 tablet by Luke s - 0.5 MG 00:00: mouth Medical tablet 00 nightly Center States she does not take this medication . mometasone- 2011-11 Yes 1{puff} Q.5D Inhale [address] [address] formoterol 0-16 puff by [facility] - (DULERA) 00:00: mouth via Medi per 200-5 00 inhaler 2 Center mcg/actuati (two) on inhaler times daily States she does not take this medication . diphenhydra 2011-11 Yes 5mL Q.25D Take [address] [address] mine-phenyl 0-16 by mouth 4 Stephanie kes - ephrine 00:00: (four) Medical 25-7.5 mg/5 00 times Center mL Liqd daily States she does not take this medication . clonazePAM 2011-11 Yes 1{tbl} QD Take [address] (KLONOPIN) 0-16 tablet by Luke s - 0.5 MG 00:00: mouth Medical tablet 00 nightly Center States she does not take this medication . mometasone- 2011-11 Yes 1{puff} Q.5D Inhale [address] formoterol 0-16 puff by [facility] - (DULERA) 00:00: mouth via Medi per 200-5 00 inhaler 2 Center mcg/actuati (two) on inhaler times daily States she does not take this medication . diphenhydra 2011-11 Yes 5mL Q.25D Take [address] [address] mine-phenyl 0-16 by mouth 4 Stephanie kes - ephrine 00:00: (four) Medical 25-7.5 mg/5 00 times Center mL Liqd daily States she does not take this medication . Vital Signs Vital Name Observation Time Observation Value Comments Source BP Diastolic 2020-09-08 00:00:00 91 mm[Hg] [facility] Height 2020-09-08 00:00:00 63 [in_i] [facility] BMI (Body Mass 2020-09-08 00:00:00 17.1 kg/m2 [facility] Index) Group BP Systolic 2020-09-08 00:00:00 128 mm[Hg] [facility] Body Weight 2020-09-08 00:00:00 1545 [oz_av] [facility] Procedures Procedure Date / Time Performed Performing Clinician Sour e XR THORACIC SPINE 2 2021-08-05 18:27:40 [place] Kum[facility] VIEWS MAMMO, screening, 2020-09-08 00:00:00 [place] digital, bilateral Group XR, tibia + fibula 2020-09-08 00:00:00 [facility] US, duplex, venous, 2020-09-08 00:00:00 [facility] lower extremity Group Removal of Ovarian [place] [facility] Cyst(s) Group Cardiac Pacemaker [place] [facility] per Procedure Group Plan of Care Planned Activity Planned Date Details Comments Source Diagnostic Test 2020-09-08 CMP, serum or plasma [facility] Pending 00:00:00 [code = CMP, serum Group or plasma] Diagnostic Test 2020-09-08 lipid panel, serum [facility] Pending 00:00:00 [code = lipid panel, Group serum] Diagnostic Test 2020-09-08 CBC w/ auto diff [facility] Pending 00:00:00 [code = CBC w/ auto Group diff] Diagnostic Test 2020-09-08 TSH, serum or plasma [facility] Pending 00:00:00 [code = TSH, serum Group or plasma] Diagnostic Test 2020-09-08 hemoglobin A1c, QN, [facility] Pending 00:00:00 blood [code = Group hemoglobin A1c, QN, blood] Diagnostic Test 2020-09-08 urinalysis, complete [facility] Pending 00:00:00 [code = urinalysis, Group complete] Encounters Start End Encounter Admission Attending Care Care Encounter Source Date/Time Date/Time Type Type Clinicians Facility Department ID 2021-12-22 2021-12-22 Outpatient [facility] [id number] [place] 00:00:00 00:00:[address] 2021-11-26 2021-11-26 Emergency E ARLINE, BL BL 7503 BL 11:09:00 16:14:00 SHWETA 2021-09-09 2021-09-09 [facility] OP Kumari, EXT MSRDP [id number] ID 00:00:00 00:00:00 [place] [id number] [facility] [place] [id number] 2021-08-05 2021-08-05 [facility] OP Kumari, EXT MSRDP [id number] ID 00:00:00 00:00:00 [place] LOCATION [id number] H ealt [place] [id number] 2021-06-08 2021-06-08 Outpatient [facility] [id number] [place] 00:00:00 00:00:[address] 2021-04-30 2021-04-30 Outpatient WICKRAMASIN [facility] [id number] [place] 00:00:00 00:00:00 ANISHA, 978 [facility] SASRUTHA 2021-03-15 2021-03-15 Outpatient RODOLFO [facility] [id number] [place] 00:00:00 00:00:00 LONA [address] 2021-03-08 2021-03-08 Outpatient [facility] [id number] [place] 00:00:00 00:00:[address] 2021-03-01 2021-03-01 Outpatient RODOLFO [facility] [id number] [place] 00:00:00 00:00:00 LONA [address] 2021-02-22 2021-02-22 Outpatient RODOLFO, [facility] [id number] [place] 00:00:00 00:00:00 LONA [address] 2021-02-19 2021-02-19 Emergency LUISA MAI [facility] [id number] [place] 00:00:00 00:00:[address] 2021-02-17 2021-02-17 Outpatient RODOLFO [facility] [id number] [place] 00:00:00 00:00:00 LONA [address] 2021-02-15 2021-02-16 Outpatient BRIAN, [facility] [id number] [place] 00:00:00 00:00:00 GIAN [address] 2021-02-11 2021-02-11 Outpatient TANIA, [facility] [id number] [place] 00:00:00 00:00:00 APOOR [address] 2021-02-08 2021-02-08 Outpatient RODOLFO [facility] [id number] [place] 00:00:00 00:00:00 LONA [address] 2021-01-29 2021-01-29 Outpatient YASMINE, [facility] [id number] [place] 00:00:00 00:00:00 YUE [address] 2021-01-18 2021-01-19 Inpatient BRIAN, [facility] [id number] [place] 00:00:00 00:00:00 GIAN [address] 2021-01-15 2021-01-15 Outpatient YASMINE, [facility] [id number] [place] 00:00:00 00:00:00 YUE [address] 2021-01-15 2021-01-15 Outpatient YASMINE, [facility] [id number] [place] 00:00:00 00:00:00 YUE [address] 2020-11-09 2020-11-09 Outpatient MARIN, [facility] [id number] [place] 00:00:00 00:00:00 APOOR [address] 2020-11-09 2020-11-09 Outpatient YASMINE, [facility] [id number] [place] 00:00:00 00:00:00 YUE [address] 2020-10-14 2020-10-14 Outpatient [facility] [id number] [place] 02:48:00 02:48:00 1118 Medical Group 2020-10-09 2020-10-09 Outpatient MARIN, [facility] [id number] [place] 00:00:00 00:00:00 APOOR 911 [facility] i 2020-10-09 2020-10-09 Outpatient [facility] [id number] [place] 00:00:00 00:00:00 582 [facility] i 2020-10-09 2020-10-09 Outpatient WICKRAMASIN [facility] [id number] [place] 00:00:00 00:00:00 GHE, 583 [facility] i SASRUTHA 2020-09-08 2020-09-08 Outpatient [facility] [id number] [place] 11:21:00 11:21:00 1013 [facility] 2020-09-08 2020-09-08 Marek Kim [facility] [place] - [id number] M at[place]or 00:00:00 00:00:00 MD Tami: [address] [place] [address], [facility], [place] [address] , Ph. 2020-09-07 2020-09-07 Outpatient [facility] [id number] [place] 05:08:00 05:08:00 1012 [facility] 2020-09-01 2020-09-01 Outpatient [facility] [id number] [place] 10:51:00 10:51:00 1006 [facility] Results Test Description Test Time Test Comments Results Result Comments Source SARS-CoV-2 (COVID-19) RNA [Presence] in Respiratory sp ecimen by 2021-02-11 23:07:47 CLAY with probe detection Test Item Value Reference Range Interpretation Comme nts SARS-CoV-2 (COVID-19) RNA [Presence] in Respiratory Not detected No t-Detected specimen by CLAY with probe detection (test code = 20666-5) SARS-CoV-2 (COVID-19) RNA [Presence] in Respiratory specimen by CLAY with probe [id number] 00:28:16 Test Item Value Reference Range Interpretation Comments SARS-CoV-2 (COVID-19) RNA Not detected Not-Detected [Presence] in Respiratory specimen by CLAY with probe detection (test code = 10632-8)
[2022-03-25 17:16] LABS: Absolute Lymphocytes (CBC) 1.4 K/uL (0.7-4.9); Hematocrit 33.1 % (36.0-45.0); Lymphocytes % 19.3 % (15.3-44.8); MPV 8.6 fL (7.6-11.3); RBC Red Blood Cell Count 3.26 M/uL (3.86-4.86)
[2022-03-25 17:18] LABS: Protime INR 1.12
[2022-03-25 17:35] LABS: BUN Blood Urea Nitrogen 6 mg/dL (7-18); Bicarbonate 21 mmol/L (21-32); Glucose Level 90 mg/dL (74-106); NT PRO-BNP 2438 pg/mL (<125); Potassium 3.2 mmol/L (3.5-5.1); Sodium Level 144 mmol/L (136-145)
[2022-03-25 17:37] LABS: Troponin High Sensitivity 196.8 pg/mL (<58.9)
--- NOTE | 2022-03-25 18:08 | RAD REPORT ---
EXAM DESCRIPTION: Yolanda Single View03/25/2022 5:12 pm CLINICAL HISTORY: Chest pain COMPARISON: 2018 FINDINGS: Small to moderate right pleural effusion with basilar atelectasis Left lung appears grossly clear. Heart is mildly enlarged. Malposition of pacemaker lead and battery suspected. The tip of the pacemaker lead lies above the lev el of the aortic arch. The battery pack overlies the lower left hemithorax. IMPRESSION: Malposition of pacemaker lead and battery suspected. Small to moderate right pleural effusion
--- NOTE | 2022-03-25 18:20 | RAD REPORT ---
EXAM DESCRIPTION: USExtrem Venous W Compress Bil03/25/2022 5:59 pm CLINICAL HISTORY: Leg swelling COMPARISON: none FINDINGS: The common femoral, superficial femoral, popliteal and posterior tibial veins bilaterally are compressible and demonstrate augmentation. Doppler demonstrates good flow. Grayscale, color and spectral analysis performed on all vessels IMPRESSION: No evidence of deep venous thrombosis involving either lower extremity.
[2022-03-25] MEDS ORDERED: FUROSEMIDE 40 MG/4 ML VIAL ONE (18:24)
--- NOTE | 2022-03-25 18:34 | ER ---
Nurse's Notes [facility] Name: Luly Gastelum Age: 51 yrs Sex: Female : 1970 Arrival Date: 03/25/2022 Time: 16:12 Bed 13 Private MD: Diagnosis: Congestive heart failure;Peripheral edema Presentation: 03/25 16:33 Chief complaint: Patient states: swelling in all four extremities , has been taking her iw Lasix and it's not helping, has hx of hypertrophic cardiomyopathy, also has some bruising on her arms. Coronavirus screen: At this time, the client does not indicate any symptoms associated with coronavirus-19. Ebola Screen: Patient negative for fever greater than or equal to 101.5 degrees Fahrenheit, and additional compatible Ebola Virus Disease symptoms Patient denies exposure to infectious person. Patient denies travel to an Ebola-affected area in the 21 days before illness onset. No symptoms or risks identified at this time. Initial Sepsis Screen: Does the patient meet any 2 criteria? No. Patient's initial sepsis screen is negative. Does the patient have a suspected source of infection? No. Patient's initial sepsis screen is negative. Risk Assessment: Do you want to hurt yourself or someone else? Patient reports no desire to harm self or others. Onset of symptoms was March 18, 2022. 16:33 Method Of Arrival: Wheelchair iw 16:33 Acuity: ALYX 3 iw Historical: - Allergies: 16:35 No Known Allergies; iw - Home Meds: 16:35 Lasix 40 mg Oral tab 1 tab as needed [Active]; metoprolol tartrate 25 mg Oral tab 1 tab iw 2 times per day [Active]; Cardizem 180 mg Oral daily [Active]; - PMHx: 16:35 Hypertrophic obstructive cardiomyopathy; Myocardial infarction; iw - PSHx: 16:35 defib replacement; iw - Immunization history:: Client reports having NOT received the Covid vaccine. - Social history:: Smoking status: Patient reports the use of cigarette tobacco products, denies chronic smoking, but will smoke occasionally. Screenin:22 Abuse screen: Denies threats or abuse. Denies injuries from another. Nutritional ww screening: No deficits noted. Tuberculosis screening: No symptoms or risk factors identified. Fall Risk None identified. 19:30 Fall Risk Fall in past 12 months (25 points). No secondary diagnosis (0 pts). IV access ke1 (20 points). Ambulatory Aid- None/Bed Rest/Nurse Assist (0 pts). Gait- Normal/Bed Rest/Wheelchair (0 pts) Mental Status- Oriented to own ability (0 pts). Total Nathan Fall Scale indicates High Risk Score (45 or more points). Fall prevention measures have been instituted. Side Rails Up X 2 Frequent Obs/Assessments Occuring As available patient and family educated on Fall Prevention Program and Strategies. Assessment: 17:22 General: Appears in no apparent distress. Behavior is calm, cooperative. Neuro: Level ww of Consciousness is awake, alert, obeys commands, Oriented to person, place, time, situation, Moves all extremities. Cardiovascular: Patient's skin is warm and dry. pacemaker pocket in the left back and pacer wires run down sternally. bilateral lower extremity edema. Rhythm is regular. Respiratory: Airway is patent Respiratory effort is even, unlabored, Respiratory pattern is regular, symmetrical. GI: No signs and/or symptoms were reported involving the gastrointestinal system. Abdomen is non-distended, Abd is soft and non tender. : No signs and/or symptoms were reported regarding the genitourinary system. Derm: Skin is intact, is thin, has lesions on multiple purple lesions on bilateral forearms. 18:38 Reassessment: Patient appears in no apparent distress at this time. No changes from ww previously documented assessment. Patient and/or family updated on plan of care and expected duration. Pain level reassessed. Patient is alert, oriented x 3, equal unlabored respirations, skin warm/dry/pink. Respiratory: Breath sounds are coarse. 19:10 Reassessment: Patient and/or family updated on plan of care and expected duration. Pain ke1 level reassessed. Patient is alert, oriented x 3, equal unlabored respirations, skin warm/dry/pink. Pain: Denies pain. 19:30 Derm: abrasion on back of head. ke1 19:30 Neuro: Level of Consciousness is awake, alert, obeys commands, Oriented to person, ke1 place, time, situation, Denies weakness blurred vision dizziness. Respiratory: Airway is patent Respiratory effort is even, unlabored. 03/26 05:35 Pain: Complains of pain in headache Pain currently is 4 out of 10 on a pain scale. ke1 Vital Signs: 03/25 16:33 BP 97 / 70; Pulse 87; Resp 18; Temp 99.1; Pulse Ox 100% on R/A; Weight 37.65 kg; Height iw 5 ft. 4 in. (162.56 cm); 17:22 BP 102 / 66; Pulse 74; Resp 18; ww 18:40 BP 93 / 76; Pulse 81; Resp 21; Pulse Ox 97% on R/A; ww 16:33 Body Mass Index 14.25 (37.65 kg, 162.56 cm) ED Course: 16:12 Patient arrived in ED. as 16:35 Triage completed. iw 16:37 Arm band placed on. 16:38 Wade Hong PA is PHCP. [facility] 16:38 Adalid Rachel MD is Attending Physician. [facility] 16:59 Ruth Izquierdo, RN is Primary Nurse. ww 17:14 XRAY Chest (1 view) In Process Unspecified. EDMS 17:22 Patient has correct armband on for positive identification. Bed in low position. Call ww light in reach. Side rails up X2. desk monitor on. Pulse ox on. NIBP on. 17:22 Initial lab(s) drawn, by mo, EKG done, by ED staff. Inserted saline lock: 20 gauge in left antecubital area, using aseptic technique. Blood collected. 18:01 US Extremity Venous W Compression Kenneth In Process Unspecified. EDMS 18:32 Benjamin Cherry MD is Hospitalizing Provider. [facility] 23:00 No provider procedures requiring assistance completed. Patient admitted, IV remains in ke1 place. Administered Medications: 18:28 Drug: Lasix (furosemide) 20 mg Route: IVP; Site: left antecubital; 18:28 Drug: Lasix (furosemide) 20 mg Route: IVP; Site: left antecubital; Outcome: 18:33 Decision to Hospitalize by Provider. [facility] 23:00 Admitted to Med/surg accompanied by tech. ke 23:00 Condition: stable 23:00 Instructed on the need for admit. 23:51 Patient left the ED. [facility] Signatures: Dispatcher [employer] EDMS Wade Hong PA PA jmm Martinez, Amelia as Williams, Irene, RN RN Ruth Izquierdo RN RN Ebrottie, Kouassi, RN RN ke1 Corrections: (The following items were deleted from the chart) 16:38 16:33 BP 127 / 100; Pulse 87bpm; Resp 18bpm; Pulse Ox 100% RA; Temp 99.1F; 37.65 kg; iw Height 5 ft. 4 in.; BMI: 14.2; iw 03/26 05:36 03/25 19:30 Derm: abrasion on back of head ke1 ke1
--- NOTE | 2022-03-25 18:34 | EDPHYS ---
Physician Documentation [facility] Name: Luly Gastelum Age: 51 yrs Sex: Female : 1970 Arrival Date: 03/25/2022 Time: 16:12 Bed 13 Private MD: ED Physician Adalid Rachel HPI: 03/25 16:52 This 51 yrs old Female presents to ER via Wheelchair with complaints of swelling. jmm 16:52 The patient presents with swelling. The complaints affect the. Onset: The jmm symptoms/episode began/occurred gradually, 1 week(s) ago. Modifying factors: The symptoms are alleviated by nothing. the symptoms are aggravated by nothing. This is a 51-year-old female with history of hypertrophic cardiomyopathy, myocardial infarction the presents emerged department with complaints of diffuse extremity swelling worsening over the past week. Patient has taken prescribed furosemide without any relief and states it has not increased her urination. Historical: - Allergies: 16:35 No Known Allergies; iw - Home Meds: 16:35 Lasix 40 mg Oral tab 1 tab as needed [Active]; metoprolol tartrate 25 mg Oral tab 1 tab iw 2 times per day [Active]; Cardizem 180 mg Oral daily [Active]; - PMHx: 16:35 Hypertrophic obstructive cardiomyopathy; Myocardial infarction; iw - PSHx: 16:35 defib replacement; iw - Immunization history:: Client reports having NOT received the Covid vaccine. - Social history:: Smoking status: Patient reports the use of cigarette tobacco products, denies chronic smoking, but will smoke occasionally. ROS: 16:52 Constitutional: Negative for fever, chills, and weight loss, Cardiovascular: Negative jmm for chest pain, palpitations, and edema, Respiratory: Negative for shortness of breath, cough, wheezing, and pleuritic chest pain. 16:52 MS/extremity: Positive for swelling. 16:52 All other systems are negative. Exam: 16:52 Constitutional: This is a well developed, well nourished patient who is awake, alert, jmm and in no acute distress. Head/Face: atraumatic. Eyes: EOMI, no conjunctival erythema appreciated ENT: Moist Mucus Membranes Neck: Trachea midline, Supple Chest/axilla: Normal chest wall appearance and motion. Cardiovascular: Regular rate and rhythm. No edema appreciated Respiratory: Normal respirations, no respiratory distress appreciated Abdomen/GI: Non distended, soft Back: Normal ROM Skin: General appearance color normal 16:52 Musculoskeletal/extremity: Edema noted to all 4 extremities, full dorsalis pedis pulse bilaterally, full radial pulse bilaterally, full loom tuner strength, full range of motion, compartments are soft, neurovascular intact. 16:52 Skin: Appearance: Color: normal in color. 16:52 Neuro: Orientation: is normal, Mentation: is normal, Memory: is normal. 16:52 Psych: Behavior/mood is pleasant, cooperative. Vital Signs: 16:33 BP 97 / 70; Pulse 87; Resp 18; Temp 99.1; Pulse Ox 100% on R/A; Weight 37.65 kg; Height iw 5 ft. 4 in. (162.56 cm); 17:22 BP 102 / 66; Pulse 74; Resp 18; ww 18:40 BP 93 / 76; Pulse 81; Resp 21; Pulse Ox 97% on R/A; ww 16:33 Body Mass Index 14.25 (37.65 kg, 162.56 cm) iw MDM: 16:52 Patient medically screened. [facility] 18:32 Data reviewed: vital signs, nurses notes. Counseling: I had a detailed discussion with klaudia the patient and/or guardian regarding: the historical points, exam findings, and any diagnostic results supporting the discharge/admit diagnosis, lab results, the need for further work-up and treatment in the hospital. ED course: I discussed the patient with Jeremias Ace whom accepted the patient to Dr. Jo Ann calderon. 03/25 16:54 Order name: Basic Metabolic Panel; Complete Time: 17:45 [facility] 03/25 16:54 Order name: CBC with Diff; Complete Time: 17:19 [facility] 03/25 16:54 Order name: NT PRO-BNP; Complete Time: 17:45 [facility] 03/25 16:54 Order name: PT-INR; Complete Time: 17:19 [facility] 03/25 16:54 Order name: Troponin HS; Complete Time: 17:45 [facility] 03/25 17:50 Order name: SARS-COV-2 RT PCR (Document "Date of Onset" if Symptomatic) [facility] 03/25 16:54 Order name: XRAY Chest (1 view); Complete Time: 18:10 [facility] 03/25 16:54 Order name: EKG; Complete Time: 16:55 [facility] 03/25 16:54 Order name: Cardiac monitoring; Complete Time: 17:10 [facility] 03/25 16:56 Order name: US Extremity Venous W Compression Kenneth; Complete Time: 18:21 [facility] 03/25 19:31 Order name: CT Head C Spine [facility] 03/25 20:56 Order name: CT; Complete Time: 22:01 [facility] 03/25 16:54 Order name: EKG - Nurse/Tech; Complete Time: 17:19 [facility] 03/25 16:54 Order name: IV Saline Lock; Complete Time: 17:10 [facility] 03/25 16:54 Order name: Labs collected and sent; Complete Time: 17:10 [facility] 03/25 16:54 Order name: O2 Per Protocol; Complete Time: 17:10 [facility] 03/25 16:54 Order name: O2 Sat Monitoring; Complete Time: 17:10 [facility] Administered Medications: 18:28 Drug: Lasix (furosemide) 20 mg Route: IVP; Site: left antecubital; ww 18:28 Drug: Lasix (furosemide) 20 mg Route: IVP; Site: left antecubital; ww Disposition: 03/26 15:47 Co-signature as Attending Physician, Adalid Rachel MD I agree with the assessment and kdr plan of care. Disposition Summary: 03/25/22 18:33 Hospitalization Ordered Hospitalization Status: Observation [facility] Provider: Benjamin Cherry Location: Telemetry/MedSurg (observation) [facility] Condition: Stable jm Problem: new jmm Symptoms: are unchanged [facility] Bed/Room Type: Standard [facility] Room Assignment: 209(03/25/22 22:14) cg Diagnosis - Congestive heart failure jmm - Peripheral edema [facility] Forms: - Medication Reconciliation Form m - SBAR form [facility] Signatures: Dispatcher [employer] Adalid Lr MD MD kdr Mickail, Joel, PA PA [facility] Sveta Whitehead, RN RN Jeremias Loja FNP-C JEANNE-Karina Marr RN RN cg Wood, Whitney, RN RN ww Corrections: (The following items were deleted from the chart) 03/25 22:14 18:33 [facility] cg
--- NOTE | 2022-03-25 19:50 | P.HP ---
Certification for Inpatient Patient admitted to: Inpatient With expected LOS: >2 Midnights Patient will require the following post-hospital care: None Practitioner: I am a practitioner with admitting privileges, knowledge of patient current condition, hospital course, and medical plan of care. Services: Services provided to patient in accordance with Admission requirements found in Title 42 Section 412.3 of the Code of Federal Regulations Patient History Date of Service: 03/25/22 Reason for admission: CHF, NSTEMI History of Present Illness: 51-year-old female with history of hypertrophic obstructive cardiomyopathy, chronic diastolic congestive heart failure with pacemaker/fibrillator in place presents emergency department for shortness of breath, edema. Patient reports over the course of the last week or so she has noted significant edema throughout her body as well as dyspnea on exertion. Patient was evaluated in the emergency department her chest x-ray revealed small to moderate right pleural effusion labs were significant for elevated high- sensitivity troponin, BNP mild hypokalemia. Patient with anasarca. She reports that at home she takes Lasix but only as needed 40 mg daily. She reports her a bottle of 60 Lasix lasted her for about a year previously does not frequently have this amount of swelling. ED provider wishes to admit for further evaluation and management of CHF exacerbation, NSTEMI during her stay in the emergency department patient did have a mechanical fall while attempting to use the restroom, she opened the door and noted somebody else was in the restroom attempting to back up quickly falling and hitting her head on the ground, negative LOC CT ordered by ED provider currently pending. Allergies No Known Allergies Allergy (Verified 10/10/18 00:41) Home Medications: Furosemide [Lasix] 1 tab PO BID 10/10/18 Diltiazem Cd [Cardizem Cd] 180 mg PO DAILY #30 cap 10/11/18 Potassium Chloride 20 meq PO DAILY #3 tablet.er 10/11/18 - Past Medical/Surgical History Diabetic: No -: myocardial infarction -: hypertrophic obstructive cardiopathy -: pacemaker, cardioverted, defibrillator -: partial hysterectomy -: removal of tumor on the neck April 2018 -: Laparoscopy ovarian cyst removed Psychosocial/ Personal History: Patient lives at home with her family - Family History Mother -: Heart disease, Other (see notes) Notes: heart transplant Father -: Cancer - Social History Smoking Status: Current every day smoker Counseled patient to stop smoking for: less than 10 minutes Smoking therapy provided: No (Patient declined) Alcohol use: Yes CD- Drugs: No Caffeine use: Yes Place of Residence: Home Review of Systems 10-point ROS is otherwise unremarkable Respiratory: Shortness of Breath Cardiovascular: Edema, Other (Anasarca), As per HPI Physical Examination - Physical Exam General: Alert, In no apparent distress, Oriented x3 HEENT: Atraumatic, PERRLA, Mucous membr. moist/pink, EOMI, Sclerae nonicteric Neck: Supple, 2+ carotid pulse no bruit, No LAD, Without JVD or thyroid abnormality Respiratory: Clear to auscultation bilaterally, Normal air movement Cardiovascular: Regular rate/rhythm, Normal S1 S2, Edema (3+ pitting edema bilateral lower extremities, swelling of the upper extremities) Gastrointestinal: Normal bowel sounds, No tenderness Musculoskeletal: No tenderness Integumentary: No rashes Neurological: Normal gait, Normal speech, Normal strength at 5/5 x4 extr, Normal tone, Normal affect Lymphatics: No axilla or inguinal lymphadenopathy - Studies Laboratory Data (last 24 hrs) 03/25/22 17:08: PT 12.3, INR 1.12 03/25/22 17:08: WBC 7.2, Hgb 11.3 L, Hct 33.1 L, Plt Count 272 03/25/22 17:08: Sodium 144, Potassium 3.2 L, BUN 6 L, Creatinine 0.48 L, Glucose 90 Assessment and Plan - Plan Assessment: NSTEMI, anasarca suspect demand ischemia related to hypertrophic obstructive ca rdiomyopathy/acute on chronic diastolic congestive heart failure Plan: NSTEMI, anasarca suspect demand ischemia related to hypertrophic obstructive cardiomyopathy/acute on chronic diastolic congestive heart failure: Continue scheduled IV Lasix 40 mg twice daily, cardiology consult in place, most recent echocardiogram 2018 with hypertrophic obstructive cardiomyopathy with normal ejection fraction at that time diastolic dysfunction noted. In 2018 it was noted the patient had a fractured pacemaker lead she reports that she has since followed up and had this repaired/replaced. Current chest x-ray suggests lead/battery misplacement will review with patient. DVT PPX: Lovenox Code status: Full Discharge Plan: Home Plan to discharge in: 48 Hours - Advance Directives Does patient have a Living Will: No Does patient have a Durable POA for Healthcare: No - Code Status/Comfort Care Code Status Assessed: Yes (Full code) Critical Care: No Time Spent Managing Pts Care (In Minutes): 55
--- NOTE | 2022-03-25 20:45 | RAD REPORT ---
EXAM DESCRIPTION: CT - Head C Spine Mpr Wo Con - 03/25/2022 8:35 pm CLINICAL HISTORY: Head and neck injury status post fall. Head and neck pain COMPARISON: None. TECHNIQUE: Computed axial tomography of the head and cervical spine was obtained. Sagittal and coronal reconstruction was performed. All CT scans are performed using dose optimization technique as appropriate and may include automated exposure control or mA/KV adjustment according to patient size. FINDINGS: An intracranial bleed is not seen. The ventricles are normal in caliber. An extra-axial fl uid collection is not noted. Complete opacification of the visualized left maxillary sinus probably sinusitis A cervical fracture is not visualized. No dislocation is noted. IMPRESSION: No acute intracranial abnormality is seen. A cervical fracture is not visualized. If the patient continues to have symptoms to suggest intracra nial /spinal cord pathology then MRI would be recommended
[2022-03-25] MEDS ORDERED: ONDANSETRON 4 MG/2 ML VIAL IV PRN (20:54)
[2022-03-25 23:38] VITALS: BMI 14.6
[2022-03-26 06:22] LABS: Absolute Lymphocytes (CBC) 1.1 K/uL (0.7-4.9); Hematocrit 26.1 % (36.0-45.0); Lymphocytes % 23.1 % (15.3-44.8); MPV 9.1 fL (7.6-11.3); RBC Red Blood Cell Count 2.56 M/uL (3.86-4.86)
--- NOTE | 2022-03-26 06:23 | P.PN ---
Date of Service: 03/26/22 Subjective: Feels swelling has improved slightly, no chest pain Reports low appetite ROS: 10 point ROS as noted above, otherwise negative Physical exam GEN: Cachectic, alert, oriented HEENT: Normal conjunctiva, sclera anicteric CV: Regular rate and rhythm, 2+ edema up to thighs laterally Pulm: Nonlabored respirations on room air at rest ABD: Soft, nontender, nondistended Integumentary: Bilateral right upper extremities with petechiae on extensor surfaces Neuro: Normal speech, normal affect Problem List NSTEMI volume overload, acute on chronic diastolic CHF exacerbation right pleural effusion severe protein calorie malnutrition hypokalemia petechiae trend troponin, cardiology consulted continue IV lasix albumin significant low replete electrolytes nephrology consulted, give albumin low-borderline BP, patient states typically runs low minimally eating over last few months - had teeth pulled in october; lost > 10 lbs suspect edema and patient's reported lack of response to lasix secondary to severe malnutrition / low albumin patient may benefit from PEG tube for several months patient will discuss with unclear etiology of petechiae, this is new for patient, nontender, not painful check ESR/CRP, VADIM, ANCA, etc hgb dropped quite a bit overnight, repeat CBC to confirm, anemia workup sent. patient denies any bleeding. eval if malnutrition /hemolysis / autoimmune Time Spent Managing Pts Care (In Minutes): 35
[2022-03-26 06:50] LABS: ALT/SGPT 40 U/L (12-78); AST/SGOT 51 U/L (15-37); Albumin 1.2 g/dL (3.4-5.0); Alkaline Phosphatase 166 U/L (45-117); BUN Blood Urea Nitrogen 6 mg/dL (7-18); Bicarbonate 24 mmol/L (21-32); Bilirubin Total 0.4 mg/dL (0.2-1.0); Glucose Level 71 mg/dL (74-106); HDL Cholesterol 14 mg/dL (40-60); LDL Cholesterol, Calculated 49 mg/dL (<130); Protein, Total 4.6 g/dL (6.4-8.2); Sodium Level 145 mmol/L (136-145); Troponin High Sensitivity 187.3 pg/mL (<58.9)
[2022-03-26 06:52] LABS: Potassium 2.9 mmol/L (3.5-5.1)
[2022-03-26] MEDS ORDERED: KCL 20 MEQ/100 mL IVPB 20 MEQ/100 ML BAG IV SCH (08:00)
[2022-03-26] MEDS: ENOXAPARIN 40 MG/0.4 ML SQ SCH (08:14)
[2022-03-26] MEDS: FUROSEMIDE 40 MG/4 ML VIAL IV SCH ×2 (08:15→16:59)
[2022-03-26 08:20] LABS: RBC Red Blood Cell Count 2.82 M/uL (3.86-4.86)
[2022-03-26 08:21] LABS: Hematocrit 28.6 % (36.0-45.0); Lymphocytes % 17.9 % (15.3-44.8); RBC Red Blood Cell Count 2.82 M/uL (3.86-4.86)
[2022-03-26 08:33] LABS: Urine Appearance Clear (Clear); Urine Bilirubin Negative (Negative); Urine Blood Negative (Negative); Urine Color Yellow (Yellow); Urine Glucose Negative (Negative); Urine Protein Negative (Negative); Urine Urobilinogen 0.2 mg/dL (0.2-1.0)
[2022-03-26 08:35] LABS: Urine Microscopic Reflex ORDER UMIC
[2022-03-26 08:35] LABS: C-Reactive Protein 3.7 mg/L (<3.00)
[2022-03-26] MEDS ORDERED: POTASSIUM CL SA 10 MEQ TAB PO ONE ×3 (08:46→17:25)
[2022-03-26] MEDS ORDERED: Magnesium Sulfate 2gm IVPB 2 G/50 ML BAG IV ONE (08:48)
[2022-03-26 09:00] LABS: Ferritin 182.9 ng/mL (8-388)
[2022-03-26 09:02] LABS: Anisocytosis 1+; Blood Morphology Comment NOTED (NOT SEEN); Macrocytosis SLIGHT; Platelet Estimate ADEQ; Polychromasia SLIGHT
[2022-03-26 09:35] LABS: Urine Bacteria 20-50 /HPF (<20); Urine Mucus MOD /HPF (NONE SEEN); Urine RBC <5 /HPF (NONE SEEN)
--- NOTE | 2022-03-26 09:45 | EKG ---
Test Date: 2022-03-25 Test Time: 17:12:55 Docketing Specialist: AMARJIT MEASUREMENT RESULTS: Intervals: Rate: 73 GA: 172 QRSD: 94 QT: 428 QTc: 471 [place]: P: 60 GA: 172 QRS: 43 T: 139 INTERPRETIVE STATEMENTS: Normal sinus rhythm T wave abnormality, consider lateral ischemia Prolonged QT Abnormal ECG Compared to ECG 10/10/2018 03:54:22 T-wave abnormality now present ST (T wave) deviation no longer present Possible ischemia still present Electronically Signed On 03-26-22 09:43:45 CDT by Sergio Florence
[2022-03-26] MEDS ORDERED: ALBUMIN HUMAN 25% 200 ML IV ONE (09:59)
--- NOTE | 2022-03-26 10:07 | P.CNS ---
Date of Consult: 03/26/22 Reason for Consult: Oliguria/ Hypokalemia Requesting Physician: Benjamin Cherry Chief Complaint: CHF, NSTEMI History of Present Illness: 51 yo WF CHF presented to the ER with 1 week of moderate, progressive dyspnea in the setting of CHF with associated edema. Reports a thoracic fracture last year followed by dental work in October of 2021. She reports not eating well since her dental work with a 10 lb weight loss. She admits to a poor diet. She is concerned about her poor urine output on furosemide. Reports persistent LE edema. Occasional smoker. No NSAIDs at home. No difficulty emptying her bladder. 51-year-old female with history of hypertrophic obstructive cardiomyopathy, chronic diastolic congestive heart failure with pacemaker/fibrillator in place presents emergency department for shortness of breath, edema. Patient reports over the course of the last week or so she has noted significant edema throughout her body as well as dyspnea on exertion. Patient was evaluated in the emergency department her chest x-ray revealed small to moderate right pleural effusion labs were significant for elevated high- sensitivity troponin, BNP mild hypokalemia. Patient with anasarca. She reports that at home she takes Lasix but only as needed 40 mg daily. She reports her a bottle of 60 Lasix lasted her for about a year previously does not frequently have this amount of swelling. ED provider wishes to admit for further evaluation and management of CHF exacerbation, NSTEMI during her stay in the emergency department patient did have a mechanical fall while attempting to use the restroom, she opened the door and noted somebody else was in the restroom attempting to back up quickly falling and hitting her head on the ground, negative LOC CT ordered by ED provider currently pending. 16:52 This 51 yrs old Female presents to ER via Wheelchair with complaints of swelling. [facility] 16:52 The patient presents with swelling. The complaints affect the. Onset: The [facility] symptoms/episode began/occurred gradually, 1 week(s) ago. Modifying factors: The symptoms are alleviated by nothing. the symptoms are aggravated by nothing. This is a 51-year-old female with history of hypertrophic cardiomyopathy, myocardial infarction the presents emerged department with complaints of diffuse extremity swelling worsening over the past week. Patient has taken prescribed furosemide without any relief and states it has not increased her urination. Allergies No Known Allergies Allergy (Verified 10/10/18 00:41) Home medications list reviewed: Yes Home Medications: Furosemide [Lasix] 1 tab PO DAILY PRN 10/10/18 Diltiazem Cd [Cardizem Cd] 180 mg PO DAILY #30 cap 10/11/18 - Past Medical/Surgical History Diabetic: No -: myocardial infarction -: hypertrophic obstructive cardiopathy -: pacemaker, cardioverted, defibrillator -: partial hysterectomy -: removal of tumor on the neck April 2018 -: Laparoscopy ovarian cyst removed Psychosocial/ Personal History: Patient lives at home with her family - Family History Mother Medical History: Heart disease, Other (see notes) Notes: heart transplant Father Medical History: Cancer - Social History Smoking Status: Current some day smoker Alcohol use: Yes CD- Drugs: No Caffeine use: Yes Place of Residence: Home Review of Systems 10-point ROS is otherwise unremarkable General: Weakness Respiratory: Cough Cardiovascular: Edema Integumentary: Bruising Physical Examination Temp Pulse Resp BP Pulse Ox 98.2 F 91 H 15 95/57 L 97 03/26/22 08:00 03/26/22 08:15 03/26/22 08:00 03/26/22 08:15 03/26/22 08:00 General: Oriented x3, Cooperative, Other (Skinny) HEENT: Atraumatic Neck: Supple Respiratory: Clear to auscultation bilaterally, Normal air movement Cardiovascular: Regular rate/rhythm, Edema Gastrointestinal: Soft and benign, Non-distended Musculoskeletal: No clubbing, No contractures Integumentary: No cyanosis, Rash(es) Neurological: Normal speech Laboratory Data (last 24 hrs) 03/25/22 17:08: PT 12.3, INR 1.12 03/25/22 17:08: WBC 7.2, Hgb 11.3 L, Hct 33.1 L, Plt Count 272 03/25/22 17:08: Sodium 144, Potassium 3.2 L, BUN 6 L, Creatinine 0.48 L, Glucose 90 Imagings Data: EXAM DESCRIPTION: Yolanda Single View03/25/2022 5:12 pm CLINICAL HISTORY: Chest pain COMPARISON: 2018 FINDINGS: Small to moderate right pleural effusion with basilar atelectasis Left lung appears grossly clear. Heart is mildly enlarged. Malposition of pacemaker lead and battery suspected. The tip of the pacemaker lead lies above the level of the aortic arch. The battery pack overlies the lower left hemithorax. IMPRESSION: Malposition of pacemaker lead and battery suspected. Small to moderate right pleural effusion 2018 LEFT VENTRICULAR WALL MOTION: NORMAL DOPPLER/COLOR FLOW: MILD TRICUSPID REGURGITATION. MILD PULMONARY HYPERTENSION. ESTIMATED RIGHT VENTRICULAR SYSTOLIC PRESSURE 45 mmHg. IMPAIRED LEFT VENTRICULAR RELAXATION. NORMAL LEFT VENTRICULAR OUTFLOW TRACT GRADIENT <5 mmHg. COMMENTS: NORMAL LEFT VENTRICULAR EJECTION FRACTION. HYPERTROPHIC CARDIOMYOPATHY. PACEMAKER CATHETER IN RIGHT VENTRICLE. DILATE LEFT ATRIUM. IMPAIRED LEFT VENTRICULAR RELAXATION. MILD PULMONARY HYPERTENSION. Conclusions/Impression: Hypokalemia -Replete potassium -Consider spironolactone Hypocalcemia (Corrected calcium normal) -Start Vitamin D3 Hypomagnesemia -Replete Mag as ordered Diastolic CHF, chronic -Continue Furosemide -Give IV Albumin as ordered Severe Malnutrition -IV Albumin ordered -Start supplementation and MVI -Encourage nutrition Anemia in chronic illness Macrocytosis -B12 normal; check Folic Acid Case reviewed with Dr. Cherry Thank you kindly for the interesting consultation.
[2022-03-26] MEDS: MULTIVITAMIN TAB PO SCH (11:50)
[2022-03-26] MEDS: VITAMIN D 5,000 UNIT CAP PO SCH ×2 (11:50→16:59)
[2022-03-26] MEDS: LACTOSE-REDUCED FOOD 330 ML LIQUID PO SCH ×3 (11:51→20:48)
[2022-03-26] MEDS: ALBUMIN HUMAN 25% 100 ML IV SCH ×2 (15:00→20:46)
[2022-03-26 18:12] LABS: Absolute Lymphocytes (CBC) 1.2 K/uL (0.7-4.9); Hematocrit 29.1 % (36.0-45.0); Lymphocytes % 20.6 % (15.3-44.8); MPV 8.7 fL (7.6-11.3); RBC Red Blood Cell Count 2.87 M/uL (3.86-4.86)
[2022-03-26] MEDS: COENZYME Q10- 200 MG CAP PO SCH (18:23)
--- NOTE | 2022-03-26 20:22 | CON ---
Date of Consultation: 03/26/[address] Cherry on 03/25/2022. I saw the patient on 03/26/2022. Reason For Consultation: Elevated troponin. History Of Present Illness: Ms. Gastelum is a 48-oltcw-ums white woman. She said she follows with Jose Juan Solorzano in [place] from a cardiac standpoint. She has a history of hypertrophic obstructive cardi omyopathy, congestive heart failure secondary to that, coronary artery disease, status post automatic internal cardiac defibrillator. In the past, she has had apparently 2 wires from her defibrillator that were fractured and have been replaced. She just had a new defibrillator placed. She came in wi th acute exacerbation of her diastolic congestive heart failure. She is feeling back to normal now. Past Medical History: As stated above. Allergies: NONE. Review of Systems: Negative. Social History: Negative. Family History: Positive for heart transplantation into her family members. She does have a son who is in his 20s and does not have a hypertrophic cardiomyopathy. Medications: At home include diltiazem, Lasix. Apparently, she was taking metoprolol, but she is no t taking that now. Physical Examination: General: She was very thin, appeared much older than her stated age. Vital Signs: Stable. She was afebrile. She is in a paced rhythm. HEENT: Negative. Neck: Supple with no bruit. Chest: Clear. A pacemaker wire is noted superficially along the midsternal wall. Abdomen: Benign. Extremities: Revealed no clubbing, cyanosis, or edema. Diagnostic Data: Chest x-ray showed pacemaker lead along the aortic wall and wire along h er sternum. She has a moderate pleural effusion on chest x-ray. She has hemoglobin of 9.6. Her tro ponin is 187. D-dimer is 883. Venous Doppler is negative. Potassium 3.2. BNP is 2438. Ms. Lindsey on improved on IV Lasix and she wants to go home. Impression And Plan: Acute on chronic exacerbation of diastolic congestive heart failure secondary t o hypertrophic cardiomyopathy. She has improved on Lasix. She should take Lasix at home along with diltiazem and she probably should be on a beta-victor hugo as well, but I will leave that up to her cardi ologist, which she will see soon. She has a pacemaker defibrillator that appeared to be placed appro priately at this point. I think with the chest x-ray stent placement. Her other problems include history of coronary artery disease, I do not know the details of that. I think her troponin elevation is secondary to demand ischemia from congestive heart failure. She is mildly anemic, hypo kalemic. Her potassium needs to be corrected. Her anemia needs to be addressed as an outpatient. C jesus was discussed with Dr. Cherry. She can go home whenever it is okay with him. OLI/GAB Voice ID: [id number] Report ID: [id number]
[2022-03-26] MEDS ORDERED: MELATONIN 5 MG TABLET PO PRN (21:24)
[2022-03-27] MEDS: ALBUMIN HUMAN 25% 100 ML IV SCH (03:18)
[2022-03-27 04:31] LABS: Urine Appearance Clear (Clear); Urine Bilirubin Negative (Negative); Urine Blood Negative (Negative); Urine Color Yellow (Yellow); Urine Glucose Negative (Negative); Urine Protein Negative (Negative); Urine Urobilinogen 0.2 mg/dL (0.2-1.0)
[2022-03-27 04:32] LABS: Absolute Lymphocytes (CBC) 1.9 K/uL (0.7-4.9); Hematocrit 27.1 % (36.0-45.0); Lymphocytes % 39.3 % (15.3-44.8); MPV 9.1 fL (7.6-11.3); RBC Red Blood Cell Count 2.65 M/uL (3.86-4.86)
[2022-03-27 04:33] LABS: Urine Microscopic Reflex ORDER UMIC
[2022-03-27 04:36] LABS: UR PROTEIN 28.1 mg/dL (<11.9); Urine Protein/Creatinine Ratio 0.5 ratio (<0.15)
[2022-03-27 04:47] LABS: ALT/SGPT 42 U/L (12-78); AST/SGOT 54 U/L (15-37); Albumin 2.8 g/dL (3.4-5.0); Alkaline Phosphatase 164 U/L (45-117); BUN Blood Urea Nitrogen 6 mg/dL (7-18); Bicarbonate 25 mmol/L (21-32); Bilirubin Total 0.6 mg/dL (0.2-1.0); Glucose Level 65 mg/dL (74-106); Phosphorus 3.1 mg/dL (2.5-4.9); Potassium 4.1 mmol/L (3.5-5.1); Protein, Total 6.3 g/dL (6.4-8.2); Sodium Level 143 mmol/L (136-145); Uric Acid 3.3 mg/dL (2.6-6.0)
[2022-03-27 05:19] LABS: Urine Bacteria >50 /HPF (<20); Urine Mucus 2+ /HPF (NONE SEEN); Urine RBC <5 /HPF (NONE SEEN)
[2022-03-27 07:07] LABS: Magnesium 2.1 mg/dL (1.8-2.4)
[2022-03-27] MEDS: VITAMIN D 5,000 UNIT CAP PO SCH (08:00)
[2022-03-27] MEDS: COENZYME Q10- 200 MG CAP PO SCH (08:00)
[2022-03-27] MEDS: ENOXAPARIN 40 MG/0.4 ML SQ SCH (08:00)
[2022-03-27] MEDS: LACTOSE-REDUCED FOOD 330 ML LIQUID PO SCH ×2 (08:01→12:44)
[2022-03-27] MEDS: MULTIVITAMIN TAB PO SCH (08:01)
[2022-03-27] MEDS ORDERED: DILTIAZEM HCL 180 MG SR CAP PO SCH (09:00)
[2022-03-27 09:32] VITALS: O2SAT 96
[2022-03-27 13:51] VITALS: TEMP 97.9
[2022-03-27 14:05] VITALS: BP 95/50
--- NOTE | 2022-03-27 15:35 | P.PN ---
Date of Service: 03/27/22 Vital Signs Temp Pulse Resp BP Pulse Ox 97.9 F 70 15 95/50 L 94 03/27/22 12:00 03/27/22 13:45 03/27/22 12:00 03/27/22 13:45 03/27/22 12:00 Assessment/ Plan: Nephrology No dyspnea No chest pain Feeling better today No acute events overnight Vitals, medications, blood work and imaging reviewed in the chart. General: Oriented x3, Cooperative, Other (Skinny) HEENT: Atraumatic Neck: Supple Respiratory: Clear to auscultation bilaterally, Normal air movement Cardiovascular: Regular rate/rhythm, Edema Gastrointestinal: Soft and benign, Non-distended Musculoskeletal: No clubbing, No contractures Integumentary: No cyanosis, Rash(es) Neurological: Normal speech Laboratory Data (last 24 hrs) 03/25/22 17:08: PT 12.3, INR 1.12 03/25/22 17:08: WBC 7.2, Hgb 11.3 L, Hct 33.1 L, Plt Count 272 03/25/22 17:08: Sodium 144, Potassium 3.2 L, BUN 6 L, Creatinine 0.48 L, Glucose 90 Imagings Data: EXAM DESCRIPTION: Yolanda Single View03/25/2022 5:12 pm CLINICAL HISTORY: Chest pain COMPARISON: 2018 FINDINGS: Small to moderate right pleural effusion with basilar atelectasis Left lung appears grossly clear. Heart is mildly enlarged. Malposition of pacemaker lead and battery suspected. The tip of the pacemaker lead lies above the level of the aortic arch. The battery pack overlies the lower left hemithorax. IMPRESSION: Malposition of pacemaker lead and battery suspected. Small to moderate right pleural effusion 2018 LEFT VENTRICULAR WALL MOTION: NORMAL DOPPLER/COLOR FLOW: MILD TRICUSPID REGURGITATION. MILD PULMONARY HYPERTENSION. ESTIMATED RIGHT VENTRICULAR SYSTOLIC PRESSURE 45 mmHg. IMPAIRED LEFT VENTRICULAR RELAXATION. NORMAL LEFT VENTRICULAR OUTFLOW TRACT GRADIENT <5 mmHg. COMMENTS: NORMAL LEFT VENTRICULAR EJECTION FRACTION. HYPERTROPHIC CARDIOMYOPATHY. PACEMAKER CATHETER IN RIGHT VENTRICLE. DILATE LEFT ATRIUM. IMPAIRED LEFT VENTRICULAR RELAXATION. MILD PULMONARY HYPERTENSION. Conclusions/Impression: Hypokalemia -Replete potassium prn -Consider spironolactone Hypocalcemia (Corrected calcium normal) -Continue Vitamin D3 Hypomagnesemia -Replete Mag prn Diastolic CHF, chronic -Continue Furosemide -Consider spironolactone -Give IV Albumin prn -Continue CoQ10 Severe Malnutrition -IV Albumin ordered -Continue supplementation and MVI -Encourage nutrition Anemia in chronic illness Macrocytosis -B12 & Folic Acid normal Case reviewed with Dr. Cherry
--- NOTE | 2022-03-27 17:02 | P.DS ---
Admission Date: 03/25/22 Discharge Date: 03/27/22 Disposition: ROUTINE DISCHARGE Discharge Condition: GOOD Reason for Admission: CHF, NSTEMI Consultations: Cardiology - Dr. Florence Nephrology - Dr. Garcia Procedures: Problem List NSTEMI, demand ischemia volume overload, acute on chronic diastolic CHF exacerbation right pleural effusion severe protein calorie malnutrition hypokalemia petechiae of bilateral arms Brief History of Present Illness: 51yo F, PMH: HOCM, chronic diastolic CHF (HFpEF) with pacemaker/defibrillator in place. Presents to ED due to significantly worsening edema over the last 1 week. Associated with mild dyspnea on exertion. In the ED, CXR: small-moderate right pleural effusion, small left pleural effusion. Noted to have anasarca and elevated troponin and BNP. She takes lasix PRN at home - states 60 pills may last her a year. She has been taking lasix daily for the last few days without improvement. Reports low urine output. During her stay in the emergency department patient did have a mechanical fall while attempting to use the restroom, she opened the door and noted somebody else was in the restroom. She was surprised and attempted to back up quickly which lead to her fall and hitting her head on the ground, negative LOC, CT negative Hospital Course: Patient was found to be volume overloaded. She was noted to have low albumin and hypokalemia. She improved with lasix and albumin. Her swelling is likely secondary to malnutrition leading to low albumin and third-spacing of her fluid. Patient reported no significant shortness of breath, was concerned and presented to ED due to leg swelling. Noted to have mildly elevated inflammatory markers and d-dimer. She was not tachycardic, not hypoxic, no clinical findings for PE. Discussed with patient and she did not want to have CT done. Patient felt better, was breathing comfortably on room air and deemed stable for discharge home. Continue 40mg lasix daily. Prescribed potassium replacement as well. She was evaluated by Cardiology and Nephrology. Follow up with your Aviation Electronics Technician soon Follow up with Nephrology in 2-3 weeks. Follow up with PCP within 3-5 days She was also noted to have mild elevated inflammatory markers and petechiae on her bilateral arms. Workup was obtained and pending at time of discharge. Patient will follow up with her PCP / Nephrology and can follow up on results. Patient reported 10-15lb weight loss over last ~4 months, since having teeth pulled. She has not been eating much, and will still require further dental procedures. Discussed her low albumin and malnutrition. Discussed consideration of PEG tube. Patient deferred for now, but will consider following up with GI if her caloric intake does not substantially increase soon. Vital Signs/Physical Exam: Temp Pulse Resp BP Pulse Ox 97.9 F 70 15 95/50 L 94 03/27/22 12:00 03/27/22 13:45 03/27/22 12:00 03/27/22 13:45 03/27/22 12:00 Physical exam GEN: Cachectic, alert, oriented HEENT: Normal conjunctiva, sclera anicteric CV: Regular rate and rhythm, 1+ edema up to thighs laterally Pulm: Non-labored respirations on room air at rest ABD: Soft, nontender, nondistended Integumentary: Bilateral right upper extremities with petechiae on extensor surf aces, nontender Neuro: Normal speech, normal affect Laboratory Data at Discharge: WBC 4.9 K/uL (4.3-10.9) D 03/27/22 04:09 Hgb 9.1 g/dL (12.0-15.0) L 03/27/22 04:09 Hct 27.1 % (36.0-45.0) L 03/27/22 04:09 Plt Count 203 K/uL (152-406) 03/27/22 04:09 PT 12.3 SECONDS (9.5-12.5) 03/25/22 17:08 INR 1.12 03/25/22 17:08 Sodium 143 mmol/L (136-145) 03/27/22 04:09 Potassium 4.1 mmol/L (3.5-5.1) 03/27/22 04:09 BUN 6 mg/dL (7-18) L 03/27/22 04:09 Creatinine 0.23 mg/dL (0.55-1.3) L 03/27/22 04:09 Glucose 65 mg/dL (74-106) L 03/27/22 04:09 Uric Acid 3.3 mg/dL (2.6-6.0) 03/27/22 04:09 Phosphorus 3.1 mg/dL (2.5-4.9) 03/27/22 04:09 Magnesium 2.1 mg/dL (1.8-2.4) 03/27/22 04:09 Total Bilirubin 0.6 mg/dL (0.2-1.0) 03/27/22 04:09 AST 54 U/L (15-37) H 03/27/22 04:09 ALT 42 U/L (12-78) 03/27/22 04:09 Alkaline Phosphatase 164 U/L (45-117) H 03/27/22 04:09 Triglycerides 128 mg/dL (<150) 03/26/22 06:09 Cholesterol 89 mg/dL (<200) 03/26/22 06:09 HDL Cholesterol 14 mg/dL (40-60) L 03/26/22 06:09 Cholesterol/HDL Ratio 6.36 03/26/22 06:09 Home Medications: Diltiazem Cd [Cardizem Cd] 180 mg PO DAILY #30 cap 10/11/18 Furosemide [Lasix] 1 tab PO DAILY 30 Days #30 tab 03/27/22 Potassium Oral Tab [Klor-Con 10 mEq Tab] 2 tab PO DAILY 30 Days #60 tab 03/27/22 New Medications: Potassium Oral Tab [Klor-Con 10 mEq Tab] 2 tab PO DAILY 30 Days #60 tab Furosemide [Lasix] 1 tab PO DAILY 30 Days #30 tab Followup: NONE,NONE [Primary Care Provider] - Time spent managing pt's care (in minutes): 45
[2022-03-30 06:13] LABS: Hepatitis C Virus RNA (PCR)log <1.18 log IU/mL
[2022-03-30 18:57] LABS: Albumin, (SPE) 1.8 g/dL (3.8-4.8); Alpha-1-Globulins 0.4 g/dL (0.2-0.3); Alpha-2-Globulins 0.5 g/dL (0.5-0.9); Gamma Globulins 1.8 g/dL (0.8-1.7); INTERPRETATION REPORT
== END 2022-03-27 14:00 | disposition home or self-care (01) | DRG 291 ==
LOC: ER 16:11 → ERHOLD 19:14 → 2ND 23:08
PROVIDERS: ADMIT Hospitalist; ATTEND Hospitalist
DX: I11.0 Hypertensive heart disease with heart failure (principal); I50.33 Acute on chronic diastolic (congestive) heart failure; E43 Unspecified severe protein-calorie malnutrition; Z68.1 Body mass index [BMI] 19.9 or less, adult; R64 Cachexia; I24.8 Other forms of acute ischemic heart disease; E87.6 Hypokalemia; I42.1 Obstructive hypertrophic cardiomyopathy; R23.3 Spontaneous ecchymoses; E83.51 Hypocalcemia; E83.42 Hypomagnesemia; S09.90XA Unspecified injury of head, initial encounter; I25.10 Atherosclerotic heart disease of native coronary artery without angina pectoris; F17.210 Nicotine dependence, cigarettes, uncomplicated; Z20.822 Contact with and (suspected) exposure to COVID-19; Z95.810 Presence of automatic (implantable) cardiac defibrillator; W01.0XXA Fall on same level from slipping, tripping and stumbling without subsequent striking against object, initial encounter; Y92.230 Patient room in hospital as the place of occurrence of the external cause
CPT/HCPCS: 36415; 70450; 71045; 72125; 80048; 80053; 80061; 81003; 81015; 82570; 82607; 82728; 82746; 83010; 83540; 83615; 83735; 83880; 83930; 83935; 84100; 84132; 84156; 84165; 84300; 84466; 84484; 84550; 85025; 85044; 85379; 85610; 85652; 86021; 86038; 86140; 86160; 86162; 86225; 86317; 86706; 87086; 87088; 87522; 93005; 93970; 96374; 97116; 97161; 97530; 99285; J1650; J1940; J2405; J3475; J3480; P9047; U0003

== ENCOUNTER 2023-02-10 14:24 | Inpatient (IN) | payer OTHER ==
--- OUTSIDE RECORDS SUMMARY | 2023-02-10 14:28 | XMS REPORT | Continuity of Care Document ---
:1970 Author Organization [facility] t Address [address] [place] [address] Care Team Providers Name Role Phone ETHAN TSE Primary Care Physician Unavailable SHWETA NUNN Attending Clinician Unavailable Robles Kumari MD Attending Clinician NANI MANUEL Attending Clinician Unavailable LONA REYNOLDS Attending Clinician Unavailable LUISA MAI Attending Clinician Unavailable GIAN TORRES Attending Clinician Unavailable MD TANIA APORADHA Attending Clinician Unavailable LOLA MARIN Attending Clinician Unavailable YUE UNDERWOOD Attending Clinician Unavailable MD YUE UNDERWOOD Attending Clinician Unavailable A_Byrd Attending Clinician Unavailable GIAN TORRES Admitting Clinician Unavailable MD TANIA APORADHA Admitting Clinician Unavailable YUE UNDERWOOD Admitting Clinician Unavailable MD YUE UNDERWOOD Admitting Clinician Unavailable A_Byrd Admitting Clinician Unavailable Payers Payer Name Policy Type Policy Number Effective Date Expiration Date Lara ANDINO [id number] 2020 00:00:00 Problems Condition Condition Condition Status [...] vaccine Vaccine Permanent Permanent Problem Active 2019-11 [facility] 0[facility]13 da pacemaker Pacemaker 00:00: Medi per 00 Group Adult Adult Problem Active 2019-11 [facility] 0-13 da examinatio Examinatio 00:00: Me dical n n 00 Group AICD lead AICD lead Disease Active [facility] displ[facility] displaceme 9-05 [facility] nt nt 00:00: Medical 00 Center Chest wall Chest wall Disease Active [facility]04 [facility] Anxiety Anxiety Disease Active 2011-[address] [facility] associated associated 0-17 Stephanie kes with with 00:00: Medical depression depression 00 Ce nter 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 Allergies, Adverse Reactions, Alerts Allergy Allergy Status Severity Reaction(s) Onset Inactive Treating Comm ents Source Name Type Date Date Clinician NO KNOWN Allergy Active 2011-[address] [facility] [address] DRUG 0-16 [facility] S 00 Center Social History Social Habit Start Date Stop Date Quantity Comments Source History of tobacco Cigarette Smoker [facility] use [facility] Tobacco Comment off/on for [address] [facility] years on for past [facility] 4 mths Alcohol Comment socially [facility] Alcohol intake 2017-06-15 2017-06-15 [facility] (finding) Cigarettes smoked 2017-06-15 2017-06-[address] [facility] current (pack per 00:00:00 00:00:00 Medical Center day) - Reported Cigarette 2017-06-15 2017-06-[address] [facility] pack-years 00:00:00 00:00:00 [facility] Tobacco use and 2017-06-15 2017-06-[address] [facility] Stephanie kes exposure 00:00:00 00:00:00 [facility] Sex Assigned At [address] [address] Stephanie kes 00:00:00 00:00:00 [facility] Sex Assigned At [birth year] [facility] 00:00:00 00:00:00 Smoking Status Start Date Stop Date Source Tobacco smoking consumption [facility] ealt unknown Current every day smoker 2017-06-15 00:00:00 [facility] Medications Ordered Filled Start Stop Current Ordering Indication Dosage Frequency Signature Comments Components Source Medication Medication Date Date Medication? Clinician (SIG) Name Name aspirin 325 Yes 325mg QD Take [address] MG tablet 9-06 mg by StephanieLinksy 17:44: mouth Medical 17 daily. [place] aspirin 325 Yes 325mg QD Take [address] MG tablet 9-06 mg by LuLinksy 17:44: mouth Medical 17 daily. [place] aspirin 325 Yes 325mg QD Take [address] MG tablet 9-06 mg by StephanieLinksy 17:44: mouth Medical 17 daily. [place] mometasone- 2011-11 Yes 1{puff} Q.5D Inhale [address] formoterol 0-16 puff by M[facility] (DULERA) 00:00: mouth via Medi per 200-5 00 inhaler 2 [place] mcg/actuati (two) on inhaler times daily States she does not take this medication . diphenhydra 2011-11 Yes 5mL Q.25D Take [address] mine-phenyl 0-16 by mouth 4 Stephanie kes ephrine 00:00: (four) Medical 25-7.5 mg/5 00 times Center mL Liqd daily States she does not take this medication . clonazePAM 2011-11 Yes 1{tbl} QD Take [address] (KLONOPIN) 0-16 tablet by Lukarlo s 0.5 MG 00:00: mouth Medical tablet 00 nightly Center States she does not take this medication . mometasone- 2011-11 Yes 1{puff} Q.5D Inhale [address] formoterol 0-16 puff by [facility] (DULERA) 00:00: mouth via Medi per 200-5 00 inhaler 2 Center mcg/actuati (two) on inhaler times daily States she does not take this medication . diphenhydra 2011-11 Yes 5mL Q.25D Take [address] [address] mine-phenyl 0-16 by mouth 4 Stephanie kes ephrine 00:00: (four) Medical 25-7.5 mg/5 00 times Center mL Liqd daily States she does not take this medication . clonazePAM 2011-11 Yes 1{tbl} QD Take [address] (KLONOPIN) 0-16 tablet by Luke s 0.5 MG 00:00: mouth Medical tablet 00 nightly Center States she does not take this medication . mometasone- 2011-11 Yes 1{puff} Q.5D Inhale [address] formoterol 0-16 puff by [facility] (DULERA) 00:00: mouth via Medi per 200-5 00 inhaler 2 Center mcg/actuati (two) on inhaler times daily States she does not take this medication . diphenhydra 2011-11 Yes 5mL Q.25D Take [address] [address] mine-phenyl 0-16 by mouth 4 Stephanie kes ephrine 00:00: (four) Medical 25-7.5 mg/5 00 times Center mL Liqd daily States she does not take this medication . clonazePAM 2011-11 Yes 1{tbl} QD Take [address] (KLONOPIN) 0-16 tablet by Luke s 0.5 MG 00:00: mouth Medical tablet 00 nightly Center States she does not take this medication . Vital Signs Vital Name Observation Time Observation Value Comments Source BP Diastolic 2020-09-08 00:00:00 91 mm[Hg] [facility] Height 2020-09-08 00:00:00 63 [in_i] [facility] BMI (Body Mass 2020-09-08 00:00:00 17.1 kg/m2 [facility] Index) Group BP Systolic 2020-09-08 00:00:00 128 mm[Hg] [facility] Body Weight 2020-09-08 00:00:00 1545 [oz_av] [facility] Procedures Procedure Date / Time Performed Performing Clinician Sourc e XR THORACIC SPINE 2 2021-08-05 18:27:40 Robles Kumari [facility] VIEWS XR THORACIC SPINE 2 2021-08-05 18:27:40 Robles Kumari [facility] VIEWS MAMMO, screening, 2020-09-08 00:00:00 [facility], bilateral Group XR, tibia + fibula 2020-09-08 00:00:00 [facility] US, duplex, venous, 2020-09-08 00:00:00 [facility] lower extremity Group Removal of Ovarian [facility] Cyst(s) Group Cardiac Pacemaker [facility] per Procedure Group Plan of Care Planned Activity Planned Date Details Comments Source Diagnostic Test 2020-09-08 CMP, serum or plasma [facility] Pending 00:00:00 [code = CMP, serum Group or plasma] Diagnostic Test 2020-09-08 lipid panel, serum [facility] Pending 00:00:00 [code = lipid panel, [...] Clinicians Facility Department ID 2021-12-22 2021-12-22 Outpatient [facility] [id number] [place] 00:00:00 00:00:[address] 2021-11-26 2021-11-26 Emergency E MIN [place]UNN [address] 7503 MIN 11:09:00 16:14:00 SHWETA 2021-09-09 2021-09-[address] [facility] OP Kumari, EXT MSR[facility] [id number] [place] 00:00:00 00:00:00 Robles LOCATION [id number] [facility] [place] [id number] 2021-09-09 2021-09-[address] [facility] OP Kumari, EXT [facility] [id number] [place] 00:00:00 00:00:00 Robles LOCATION [id number] [facility] [place] [id number] 2021-08-05 2021-08-[address] [facility] OP Kumari, EXT [facility] [id number] [place] 00:00:00 00:00:00 Robles LOCATION [id number] [facility] [place] [id number] 2021-08-05 2021-08-[address] [facility] OP Kumari, EXT [facility] [id number] [place] 00:00:00 00:00:00 Robles LOCATION [id number] [facility] [place] [id number] 2021-06-08 2021-06-08 Outpatient [facility] [id number] [place] 00:00:00 00:00:00 285 [facility] i 2021-04-30 2021-04-30 Outpatient WICKRAMASIN [facility] [id number] [place] 00:00:00 00:00:00 GHLionel, [address] [facility] SASRUTHA 2021-03-15 2021-03-15 Outpatient REYNOLDS, [facility] [id number] [place] 00:00:00 00:00:00 LONA 814 [facility] i 2021-03-08 2021-03-08 Outpatient [facility] [id number] [place] 00:00:00 00:00:00 919 [facility] i 2021-03-01 2021-03-01 Outpatient REYNOLDS, [facility] [id number] [place] 00:00:00 00:00:00 LONA [address] 2021-02-22 2021-02-22 Outpatient RODOLFO, [facility] [id number] [place] 00:00:00 00:00:00 LONA [address] 2021-02-19 2021-02-19 Emergency LUISA MAI [facility] [id number] [place] 00:00:00 00:00:[address] 2021-02-17 2021-02-17 Outpatient RODOLFO, [facility] [id number] [place] 00:00:00 00:00:00 LONA [address] 2021-02-15 2021-02-16 Outpatient BRIAN, [facility] [id number] [place] 00:00:00 00:00:00 GIAN [address] 2021-02-11 2021-02-11 Outpatient TANIA, [facility] [id number] [place] 00:00:00 00:00:00 APOOR [address] 2021-02-08 2021-02-08 Outpatient RODOLFO, [facility] [id number] [place] 00:00:00 00:00:00 LONA [address] 2021-01-29 2021-01-29 Outpatient YASMINE, [facility] [id number] [place] 00:00:00 00:00:00 YUE [address] 2021-01-18 2021-01-19 Inpatient BRIAN, [facility] [id number] [place] 00:00:00 00:00:[address] GIAN [address] 2021-01-15 2021-01-15 Outpatient YASMINE, [facility] [id number] [place] 00:00:00 00:00:00 YUE [address] 2021-01-15 2021-01-15 Outpatient YASMINE, [facility] [id number] [place] 00:00:00 00:00:00 YUE [address] 2020-11-09 2020-11-09 Outpatient TANIA, [facility] [id number] [place] 00:00:00 00:00:00 APOOR [address] 2020-11-09 2020-11-09 Outpatient YASMINE, [facility] [id number] [place] 00:00:00 00:00:00 YUE [address] 2020-10-14 2020-10-14 Outpatient A_Byrd [facility] [id number] [place] 02:48:00 02:48:00 1118 Medical Group 2020-10-09 2020-10-09 Outpatient MARIN, [facility] [id number] [place] 00:00:00 00:00:00 APOOR 911 [facility] i 2020-10-09 2020-10-09 Outpatient [facility] [id number] [place] 00:00:00 00:00:00 582 [facility] 2020-10-09 2020-10-09 Outpatient WICKRAMASIN [facility] [id number] [place] 00:00:00 00:00:00 GHE, 5[address] i SASRUTHA 2020-09-08 2020-09-08 Outpatient A_Byrd [facility] [id number] [place] 11:21:00 11:21:00 1013 Medical Group 2020-09-08 2020-09-08 Aspen Kim [facility] [place] - [id number] M atagor 00:00:00 00:00:00 MD Girish: [address] [facility] [place] - [address], [facility], [facility] [place] [address] , Ph. 2020-09-07 2020-09-07 Outpatient A_Byrd [facility] [id number] [place] 05:08:00 05:08:00 1012 Medical Group 2020-09-01 2020-09-01 Outpatient A_Byrd [facility] [id number] [place] 10:51:00 10:51:00 1006 Medical Group Results Test Description Test Time Test Comments Results Result Comments Source SARS-CoV-2 (COVID-19) RNA [Presence] in Respiratory sp ecimen by 2021-02-11 23:07:47 CLAY with probe detection Test Item Value Reference Range Interpretation Comme nts SARS-CoV-2 (COVID-19) RNA [Presence] in Respiratory Not detected No t-Detected specimen by CLAY with probe detection (test code = 99965-6) [facility] ([facility]OVID-19) RNA [Presence] in Respiratory specimen by CLAY with probe [id number] 00:28:16 Test Item Value Reference Range Interpretation Comments SARS-CoV-2 (COVID-19) RNA Not detected Not-Detected [Presence] in Respiratory specimen by CLAY with probe detection (test code = 62443-6) [facility]
[2023-02-10 15:18] LABS: Absolute Lymphocytes (CBC) 1.9 K/uL (0.7-4.9); Hematocrit 38.1 % (36.0-45.0); Lymphocytes % 32.4 % (15.3-44.8); MCV 97.5 fL (80-100); MPV 8.8 fL (7.6-11.3)
[2023-02-10 15:44] LABS: Bilirubin Total 0.5 mg/dL (0.2-1.0); Potassium 3.3 mEq/L (3.5-5.1); Protein, Total 7.8 g/dL (6.4-8.2)
--- NOTE | 2023-02-10 15:57 | RAD REPORT ---
EXAM DESCRIPTION: RAD - Chest Single View - 02/10/2023 3:27 pm CLINICAL HISTORY: DYSPNEA Chest pain. COMPARISON: Chest Single View dated 03/25/2022; Chest Single View dated 10/09/2018 FINDINGS: Portable technique limits examination quality. Mild bilateral pulmonary opacities, greater on the right. This may represent pulmonary edema. The hea rt is moderately enlarged. Pacemaker is unchanged in position since comparative study. Correlate clin ically.
[2023-02-10 15:58] LABS: Troponin High Sensitivity 509.5 pg/mL (<58.9)
--- NOTE | 2023-02-10 16:42 | EDPHYS ---
Physician Documentation [facility] Name: Luly Gastelum Age: 52 yrs Sex: Female : 1970 Arrival Date: 02/10/2023 Time: 14:29 Bed 6 Private MD: ED Physician Kamlesh Sabillon Historical: - Allergies: 02/10 14:46 No Known Allergies; ss - PMHx: 14:46 Hypertrophic obstructive cardiomyopathy; Myocardial infarction; CHF; ss - PSHx: 14:46 defib replacement; ss - Social history:: Smoking status: Patient denies any tobacco usage or history of. Vital Signs: 14:45 BP 130 / 104; Pulse 109; Resp 22; Temp 98.1(O); Pulse Ox 98% on R/A; Weight 45.36 kg; ss Height 5 ft. 4 in. ; Pain 1/10; 16:28 BP 112 / 81; Pulse 97; Resp 16; Pulse Ox 95% ; bp 14:45 Body Mass Index 17.16 (45.36 kg, 162.56 cm) ss 14:45 Pain Scale: Adult ss MDM: 14:38 Patient medically screened. rt 02/10 14:46 Order name: CBC with Diff; Complete Time: 16:06 rt 02/10 14:46 Order name: CMP; Complete Time: 16:06 rt 02/10 14:46 Order name: Troponin High Sensitivity; Complete Time: 16:06 rt 02/10 14:46 Order name: BNP; Complete Time: 16:06 rt 02/10 14:46 Order name: Chest Single View XRAY; Complete Time: 16:06 rt 02/10 14:46 Order name: EKG; Complete Time: 14:47 rt 02/10 14:46 Order name: EKG - Nurse/Tech; Complete Time: 15:07 rt Administered Medications: 15:23 Drug: Aspirin PO 325 mg Route: PO; bp 16:27 Follow up: Response: No adverse reaction bp 15:23 Drug: DuoNeb Nebulize (3:1) (2.5 mg - 0.5 mg) 3 ml Route: Nebulizer; bp 16:27 Follow up: Response: No adverse reaction bp Disposition Summary: 02/10/23 16:41 Hospitalization Ordered Hospitalization Status: Observation rt Provider: Boris Cr rt Location: Telemetry/MedSurg (observation) rt Condition: Fair rt Problem: an acute exacerbation rt Symptoms: have improved rt Bed/Room Type: Standard rt Room Assignment: rt Diagnosis - Acute on chronic systolic (congestive) heart failure rt - Subsequent non-ST elevation (NSTEMI) myocardial infarction rt Forms: - Medication Reconciliation Form rt - SBAR form rt Signatures: Dispatcher [employer] Frances Padilla RN RN ss Peltier, Brian, RN RN bp [place], Ryan, MD MD rt
--- NOTE | 2023-02-10 16:42 | ER ---
Nurse's Notes [facility] Name: Luly Gastelum Age: 52 yrs Sex: Female : 1970 Arrival Date: 02/10/2023 Time: 14:29 Bed 6 Private MD: Diagnosis: Acute on chronic systolic (congestive) heart failure;Subsequent non-ST elevation (NSTEMI) myocardial infarction Presentation: 02/10 14:45 Chief complaint: Patient states: shortness of breath and chest tightness x 3 weeks. ss Coronavirus screen: Client denies travel out of the [place] in the last 14 days. Ebola Screen: Patient denies exposure to infectious person. Patient denies travel to an Ebola-affected area in the 21 days before illness onset. Initial Sepsis Screen: Does the patient meet any 2 criteria? No. Patient's initial sepsis screen is negative. Does the patient have a suspected source of infection? No. Patient's initial sepsis screen is negative. Risk Assessment: Do you want to hurt yourself or someone else? Patient reports no desire to harm self or others. Onset of symptoms was January 19, 2023. 14:45 Method Of Arrival: Ambulatory ss 14:45 Acuity: ALYX 3 Triage Assessment: 14:45 General: Appears in no apparent distress. uncomfortable, Behavior is cooperative, bp appropriate for age, anxious. Pain: Complains of pain in chest. EENT: No deficits noted. Neuro: No deficits noted. Cardiovascular: Rhythm is sinus tachycardia. Respiratory: Airway is patent. GI: No signs and/or symptoms were reported involving the gastrointestinal system. : No signs and/or symptoms were reported regarding the genitourinary system. Derm: No deficits noted. Musculoskeletal: No deficits noted. Historical: - Allergies: 14:46 No Known Allergies; ss - PMHx: 14:46 Hypertrophic obstructive cardiomyopathy; Myocardial infarction; CHF; ss - PSHx: 14:46 defib replacement; ss - Social history:: Smoking status: Patient denies any tobacco usage or history of. Screenin:45 [facility] ED Fall Risk Assessment (Adult) History of falling in the last 3 months, bp including since admission No falls in past 3 months (0 pts). Abuse screen: Denies threats or abuse. Denies injuries from another. Nutritional screening: No deficits noted. Tuberculosis screening: No symptoms or risk factors identified. Assessment: 14:45 General: SEE TRIAGE NOTE. bp 16:28 Reassessment: No changes from previously documented assessment. Patient and/or family bp updated on plan of care and expected duration. Pain level reassessed. Vital Signs: 14:45 BP 130 / 104; Pulse 109; Resp 22; Temp 98.1(O); Pulse Ox 98% on R/A; Weight 45.36 kg; ss Height 5 ft. 4 in. ; Pain 1/10; 16:28 BP 112 / 81; Pulse 97; Resp 16; Pulse Ox 95% ; bp 14:45 Body Mass Index 17.16 (45.36 kg, 162.56 cm) ss 14:45 Pain Scale: Adult ss ED Course: 14:29 Patient arrived in ED. mr 14:30 Kamlesh Sabillon MD is Attending Physician. rt 14:37 Stewart Castillo, NILESH is Primary Nurse. bp 14:45 Patient has correct armband on for positive identification. Bed in low position. Call bp light in reach. Side rails up X2. Client placed on continuous cardiac and pulse oximetry monitoring. NIBP monitoring applied. 14:46 Triage completed. ss 14:46 Arm band placed on left wrist. ss 15:28 Chest Single View XRAY In Process Unspecified. EDMS 15:30 Inserted saline lock: 20 gauge in right forearm, using aseptic technique. Blood bp collected. 15:30 Patient maintains SpO2 saturation greater than 95% on room air. bp 16:40 Kamlesh Sabillon MD is Hospitalizing Provider. rt 16:40 Boris Cr MD is Hospitalizing Provider. rt Administered Medications: 15:23 Drug: Aspirin PO 325 mg Route: PO; bp 16:27 Follow up: Response: No adverse reaction bp 15:23 Drug: DuoNeb Nebulize (3:1) (2.5 mg - 0.5 mg) 3 ml Route: Nebulizer; bp 16:27 Follow up: Response: No adverse reaction bp Outcome: 16:41 Decision to Hospitalize by Provider. rt Signatures: Dispatcher [employer] [facility] Eve BerryFrances, RN RN ss Stewart Castillo, NILESH RN bp Kamlesh Sabillon MD MD rt
[2023-02-10] MEDS ORDERED: ONDANSETRON 4 MG/2 ML VIAL IV PRN (17:08)
[2023-02-10] MEDS ORDERED: ACETAMINOPHEN 500 MG TAB PO PRN (17:08)
[2023-02-10] MEDS ORDERED: PROPRANOLOL HCL 10 MG TAB PO PRN (17:23)
--- NOTE | 2023-02-10 17:38 | P.HP ---
Certification for Inpatient Patient admitted to: Observation With expected LOS: <2 Midnights Patient will require the following post-hospital care: None Practitioner: I am a practitioner with admitting privileges, knowledge of patient current condition, hospital course, and medical plan of care. Services: Services provided to patient in accordance with Admission requirements found in Title 42 Section 412.3 of the Code of Federal Regulations <Kip Gallardo - Last Filed: 02/10/23 17:30> Patient History Date of Service: 02/10/23 Reason for admission: CHF, NSTEMI History of Present Illness: This is a 52-year-old female with history of hypertrophic obstructive cardiomyopathy, chronic diastolic congestive heart failure with pacemaker/fibrillator in place who presents to the emergency department for shortness of breath and chest tightness. Patient reports over the course of the last 2-3 weeks having worsening shortness of breath after inhaling pine dust and dyspnea on exertion with chest tightness. She reports taking ibuprofen for her pain with minimal improvement. She also present with essential tremors, patient says she uses her propanolol but stopped taking it. On exam patient was labored with crackles at the bases and nonproductive cough. Her chest x-ray revealed pulmonary edema. Her labs were significant for elevated troponins 509, BNP of 6037, potasium of 3.3. She reports taking her Lasix daily for that past 2-3 weeks. Patient will be admitted under care of Dr. Cr. Cardiology will be consulted for further management. - Past Medical/Surgical History Diabetic: No -: myocardial infarction -: hypertrophic obstructive cardiopathy -: pacemaker, cardioverted, defibrillator -: partial hysterectomy -: removal of tumor on the neck April 2018 -: Laparoscopy ovarian cyst removed Psychosocial/ Personal History: Patient lives at home with her family - Family History Mother -: Heart disease, Other (see notes) Notes: heart transplant Father -: Cancer - Social History Smoking Status: Former smoker Alcohol use: Yes CD- Drugs: No Caffeine use: Yes <Kip Gallardo - Last Filed: 02/10/23 17:30> Date of Service: 02/10/23 <Boris Cr - Last Filed: 02/10/23 19:16> Allergies No Known Allergies Allergy (Verified 10/10/18 00:41) Home Medications: Diltiazem Cd [Cardizem Cd] 180 mg PO DAILY #30 cap 10/11/18 Furosemide [Lasix] 1 tab PO DAILY 30 Days #30 tab 03/27/22 Potassium Oral Tab [Klor-Con 10 mEq Tab] 2 tab PO DAILY 30 Days #60 tab 03/27/22 Review of Systems 10-point ROS is otherwise unremarkable General: Weakness Respiratory: Cough, Shortness of Breath, SOB with Excertion Cardiovascular: Chest Pain <Kip Gallardo - Last Filed: 02/10/23 17:30> Physical Examination - Vital Signs Temperature: 98.1 F Blood Pressure: 112/81 Pulse: 97 Respirations: 22 Pulse Ox (%): 98 - Physical Exam General: Alert, Oriented x3, Mild distress HEENT: Atraumatic, Normocephalic, PERRLA Neck: Supple Respiratory: Crackles/rales Cardiovascular: Normal pulses, Regular rate/rhythm, Normal S1 S2 Capillary refill: <2 Seconds Gastrointestinal: Normal bowel sounds Musculoskeletal: No clubbing, No swelling Integumentary: No rashes, No breakdown, No significant lesion Neurological: Normal speech, Normal strength at 5/5 x4 extr, Normal tone, Sensation intact Lymphatics: No axilla or inguinal lymphadenopathy - Studies Laboratory Data (last 24 hrs) 02/10/23 15:00: Sodium 138, Potassium 3.3 L, BUN 11, Creatinine 0.74, Glucose 103, Total Bilirubin 0.5, AST 71 H, ALT 62 H, Alkaline Phosphatase 208 H 02/10/23 15:00: WBC 5.90, Hgb 12.7, Hct 38.1, Plt Count 188 <Kip Gallardo - Last Filed: 02/10/23 17:30> - Studies Laboratory Data (last 24 hrs) 02/10/23 15:00: Sodium 138, Potassium 3.3 L, BUN 11, Creatinine 0.74, Glucose 103, Total Bilirubin 0.5, AST 71 H, ALT 62 H, Alkaline Phosphatase 208 H 02/10/23 15:00: WBC 5.90, Hgb 12.7, Hct 38.1, Plt Count 188 <Boris Cr - Last Filed: 02/10/23 19:16> Assessment and Plan - Plan Assessment Acute on chronic diastolic CHF exacerbation NSTEMI Essential tremors Anxiety Hypokalemia History of RI Plan Continue nebulizer treatments Continue IV Lasix Strict I's and O's with daily weights Cardiology consulted, recommendations appreciated Continue home medications when appropriate Troponin trending Xanax as needed for anxiety Echo pending, last EF 60 to 69% back in 2018 DVT PPX- Lovenox Full code Discharge Plan: Home Plan to discharge in: 48 Hours - Advance Directives Does patient have a Living Will: No Does patient have a Durable POA for Healthcare: No - Code Status/Comfort Care Code Status Assessed: Yes (Full code) Critical Care: No Time Spent Managing Pts Care (In Minutes): 50 <Kip Gallardo - Last Filed: 02/10/23 17:30> Physician Review: Patient Assessed, Agree with Above Assessment and Plan <Boris Cr - Last Filed: 02/10/23 19:16>
[2023-02-10] MEDS ORDERED: ALBUTEROL 2.5 MG/3 ML NEB SOL ONE (20:11)
[2023-02-10] MEDS: ALBUTEROL 2.5 MG/3 ML NEB SOL NEB SCH (20:15)
--- NOTE | 2023-02-10 21:53 | RAD REPORT ---
EXAM DESCRIPTION: CT - Chest For Pe Angio - 02/10/2023 9:42 pm CLINICAL HISTORY: Chest pain. Dyspnea, Elevated DD COMPARISON: No comparisons TECHNIQUE: CT angiogram of the pulmonary arteries was performed with MIP. All CT scans are performed using dose optimization technique as appropriate and may include automated exposure control or mA/KV adjustment according to patient size. FINDINGS: No evidence of pulmonary thromboembolism. Moderate cardiomegaly is seen. The aorta is not well opacified. Mild interstitial pulmonary edema. Small right pleural effusion. Trace left pleural effusion. No concerning bony finding. IMPRESSION: No evidence of pulmonary thromboembolism. Mild to moderate CHF pattern.
[2023-02-10] MEDS ORDERED: ENOXAPARIN 60 MG/0.6 ML SQ ONE (22:55)
[2023-02-10] MEDS: ENOXAPARIN 60 MG/0.6 ML SQ SCH (22:55)
[2023-02-10] MEDS ORDERED: ATORVASTATIN 40 MG TAB ONE (22:55)
[2023-02-10] MEDS: ATORVASTATIN 40 MG TAB PO SCH (22:55)
[2023-02-10 23:11] VITALS: BMI 17.2
[2023-02-11] MEDS ORDERED: ALPRAZOLAM 0.5 MG TABLET ONE (00:07)
[2023-02-11] MEDS ORDERED: BENZONATATE 100 MG CAP PO ONE ×3 (00:07→10:24)
[2023-02-11] MEDS: ALPRAZOLAM 0.25 MG TABLET PO PRN ×2 (00:08→22:13)
[2023-02-11] MEDS: BENZONATATE 100 MG CAP PO PRN ×3 (00:08→10:21)
[2023-02-11] MEDS ORDERED: ALBUTEROL 2.5 MG/3 ML NEB SOL ONE ×3 (02:07→13:49)
[2023-02-11] MEDS: ALBUTEROL 2.5 MG/3 ML NEB SOL NEB SCH ×6 (02:15→20:00)
[2023-02-11 03:47] LABS: Phosphorus 8.8 mg/dL (2.5-4.9)
[2023-02-11] MEDS ORDERED: KCL 20 MEQ/100 mL IVPB 100 ML IV ONE (06:31)
[2023-02-11] MEDS ORDERED: NA CHLORIDE 0.9% 250 ML ONE (06:31)
[2023-02-11] MEDS ORDERED: KCL 20 MEQ/100 mL IVPB 20 MEQ/100 ML BAG IV SCH (07:00)
[2023-02-11] MEDS ORDERED: ASPIRIN EC 81 MG TAB PO ONE (08:36)
[2023-02-11] MEDS ORDERED: FUROSEMIDE 40 MG/4 ML VIAL ONE (08:36)
[2023-02-11] MEDS ORDERED: ENOXAPARIN 60 MG/0.6 ML SQ ONE (08:37)
[2023-02-11] MEDS ORDERED: POTASSIUM CL SA 10 MEQ TAB PO ONE (08:41)
[2023-02-11] MEDS: ASPIRIN EC 81 MG TAB PO SCH (08:45)
[2023-02-11] MEDS: DILTIAZEM HCL 180 MG SR CAP PO SCH (08:45)
[2023-02-11] MEDS: POTASSIUM CL SA 10 MEQ TAB PO SCH (08:46)
[2023-02-11] MEDS: ENOXAPARIN 60 MG/0.6 ML SQ SCH ×2 (08:46→22:13)
[2023-02-11] MEDS: FUROSEMIDE 40 MG/4 ML VIAL IV SCH ×2 (08:46→17:30)
[2023-02-11] MEDS ORDERED: INFLUENZA VACCINE (for 6+ mo) 0.5 ML DOSE IMVAC ONE (09:00)
[2023-02-11] MEDS ORDERED: ENOXAPARIN 40 MG/0.4 ML SQ SCH (09:00)
--- NOTE | 2023-02-11 09:47 | RAD REPORT ---
EXAM DESCRIPTION: US - Liver Only - 02/11/2023 12:36 am CLINICAL HISTORY: Elevated liver function test enzymes COMPARISON: none FINDINGS: A increased hepatic echotexture. A lesion not seen. Liver appears borderline enlarged Portal vein patent with hepatopetal flow Spleen 10 centimeters with normal echotexture IMPRESSION: Increased hepatic echotexture probably fatty infiltration
--- NOTE | 2023-02-11 11:33 | P.PN ---
Subjective Date of Service: 02/11/23 Chief Complaint: CHF, NSTEMI No acute events overnight. She reports significant shortness of breath with ambulation. She reports orthopnea and edema. She denies any chest pain or palpitations. Review of Systems 10-point ROS is otherwise unremarkable Respiratory: Shortness of Breath Cardiovascular: Orthopnea, Edema Physical Examination - Vital Signs Temperature: 98.3 F Blood Pressure: 119/75 Pulse: 100 Respirations: 17 Pulse Ox (%): 97 - Physical Exam General: Alert, In no apparent distress, Oriented x3 HEENT: Atraumatic, Mucous membr. moist/pink, EOMI, Sclerae nonicteric Neck: JVD distended Respiratory: Crackles/rales (bibasilar) Cardiovascular: Regular rate/rhythm, Normal S1 S2, No gallops, No rubs, No murmurs, Edema (1+ BLE) Gastrointestinal: Normal bowel sounds, Soft and benign, Non-distended, No tenderness, No rebound, No guarding Musculoskeletal: No clubbing Integumentary: No rashes Neurological: Normal speech, Normal affect - Studies Laboratory Data (last 24 hrs) 02/10/23 15:00: Sodium 138, Potassium 3.3 L, BUN 11, Creatinine 0.74, Glucose 103, Total Bilirubin 0.5, AST 71 H, ALT 62 H, Alkaline Phosphatase 208 H 02/10/23 15:00: WBC 5.90, Hgb 12.7, Hct 38.1, Plt Count 188 Assessment And Plan - Plan # Acute on Chronic Decompensated Diastolic Congestive Heart Failure with Preserved Ejection Fraction # Hypertrophic Obstructive Cardiomyopathy s/p PPM/AICD - Consult Cardiology - recommendations appreciated - Chest x-ray: "mild bilateral pulmonary opacities, greater on the right. This may represent pulmonary edema. The heart is moderately enlarged. Pacemaker is unchanged in position since comparative study. Correlate clinically." - CT chest angiogram: "no evidence of pulmonary thromboembolism. Mild to moderate CHF pattern." - NT-Pro BNP = 6037 - Continue home diltiazem - Ordered transthoracic echocardiogram - Diuresis with IV furosemide - Daily weights - Strict I/O - Cardiac diet, 1.5 L fluid restriction, 2 g Na restriction # Suspected Type II Non-ST Segment Elevation Myocardial Infarction (Demand Ischemia) due to above # History of Myocardial Infarction - Evaluation thus far: - EKG: reportedly without STEMI criteria, trend - Serial troponin = 509.5 -> 489.6 -> 506.3 -> 526.1 - Ordered transthoracic echocardiogram - D-Dimer: 1181 - Management plan: - Consult Cardiology - recommendations appreciated - Continue aspirin, atorvastatin, SQ enoxaparin - Beta-victor hugo not started given that she is on diltiazem - Consider EMMANUELLE-inhibitor/ARB as tolerated # Non-Alcoholic Fatty Liver Disease - ALT 62, AST 71, ALP 208 - COLON risk profile: - Hgb A1c: 4.9 % - Lipid panel: TC 90, LDL 40, HDL 26, TG 119 - HCV Ab: negative - Liver ultrasound: "increased hepatic echotexture probably fatty infiltration" # Essential Tremors - Continue home PRN propanolol Boris Cr M.D.
[2023-02-11] MEDS ORDERED: ALBUTEROL 2.5 MG/3 ML NEB SOL NEB PRN (20:34)
--- NOTE | 2023-02-11 21:12 | RAD REPORT ---
EXAM DESCRIPTION: US - Extrem Venous W Compress Kenneth - 02/11/2023 12:36 am CLINICAL HISTORY: Lower extremity pain and swelling. TECHNIQUE: Bilateral lower extremity venous Doppler. COMPARISON: None. FINDINGS: The right common femoral vein, superficial femoral vein, popliteal vein, great saphenous v ein and proximal calf veins demonstrate normal compressibility and color flow. No deep vein thrombosi s is demonstrated. The left common femoral vein, superficial femoral vein, popliteal vein, great saphenous vein and prox imal calf veins demonstrate normal compressibility and color flow. No deep vein thrombosis is demonst rated. IMPRESSION: Normal. Electronically signed by: Alexander Shaikh MD 02/11/2023 12:47 AM CDT Due to temporary technical issues with the PACS/Fluency reporting system, reports are being signed by the in house radiologists without review as a courtesy to insure prompt reporting. The interpreting radiologist is fully responsible for the content of the report.
[2023-02-11] MEDS: ATORVASTATIN 40 MG TAB PO SCH (22:13)
[2023-02-12 07:08] LABS: Magnesium 1.8 mg/dL (1.6-2.4); Potassium 3.3 mEq/L (3.5-5.1)
[2023-02-12] MEDS ORDERED: POTASSIUM CL SA 10 MEQ TAB PO ONE (09:00)
[2023-02-12] MEDS ORDERED: MAGNESIUM SULFATE 1 gm IVPB 1 GM/100 ML BAG IV ONE (09:00)
[2023-02-12] MEDS: ENOXAPARIN 60 MG/0.6 ML SQ SCH ×2 (09:35→21:16)
[2023-02-12] MEDS: FUROSEMIDE 40 MG/4 ML VIAL IV SCH ×2 (09:35→16:04)
[2023-02-12] MEDS: ASPIRIN EC 81 MG TAB PO SCH (09:36)
[2023-02-12] MEDS: DILTIAZEM HCL 180 MG SR CAP PO SCH (09:36)
[2023-02-12] MEDS: POTASSIUM CL SA 10 MEQ TAB PO SCH (09:37)
--- NOTE | 2023-02-12 12:19 | P.PN ---
Subjective Date of Service: 02/12/23 Chief Complaint: CHF, NSTEMI No acute events overnight. She reports that she feels well at rest, but continues to have shortness of breath with exertion. She denies any chest pain, palpitations, abdominal pain, or nausea/vomiting. Review of Systems 10-point ROS is otherwise unremarkable Respiratory: SOB with Excertion Cardiovascular: Edema Physical Examination - Vital Signs Temperature: 98.1 F Blood Pressure: 106/71 Pulse: 92 Respirations: 16 Pulse Ox (%): 95 Assessment And Plan - Plan - Physical Exam General: Alert, In no apparent distress, Oriented x3 HEENT: Atraumatic, Mucous membr. moist/pink, EOMI, Sclerae nonicteric Neck: JVD not distended Respiratory: Crackles/rales (faint bibasilar) Cardiovascular: Regular rate/rhythm, No murmurs, Edema (1+ BLE) Gastrointestinal: Normal bowel sounds, Soft, Non-distended, No tenderness Musculoskeletal: No clubbing Integumentary: No rashes Neurological: Normal speech, Normal affect # Acute on Chronic Decompensated Diastolic Congestive Heart Failure with Preserved Ejection Fraction # Hypertrophic Obstructive Cardiomyopathy s/p PPM/AICD - Consult Cardiology - recommendations appreciated - Chest x-ray: "mild bilateral pulmonary opacities, greater on the right. This may represent pulmonary edema. The heart is moderately enlarged. Pacemaker is unchanged in position since comparative study. Correlate clinically." - CT chest angiogram: "no evidence of pulmonary thromboembolism. Mild to moderate CHF pattern." - NT-Pro BNP = 6037 - Continue home diltiazem - Ordered transthoracic echocardiogram - Diuresis with IV furosemide - Daily weights - Strict I/O - Cardiac diet, 1.5 L fluid restriction, 2 g Na restriction # Suspected Type II Non-ST Segment Elevation Myocardial Infarction (Demand Ischemia) due to above # History of Myocardial Infarction - Evaluation thus far: - EKG: reportedly without STEMI criteria, trend - Serial troponin = 509.5 -> 489.6 -> 506.3 -> 526.1 - Ordered transthoracic echocardiogram - D-Dimer: 1181 - Bilateral lower extremity Doppler = "normal" - CT chest angiogram = "no evidence of pulmonary thromboembolism. Mild to moderate CHF pattern." - Management plan: - Consult Cardiology - recommendations appreciated - Continue aspirin, atorvastatin, SQ enoxaparin - Beta-victor hugo not started given that she is on diltiazem - Consider EMMANUELLE-inhibitor/ARB as tolerated # Non-Alcoholic Fatty Liver Disease - ALT 62, AST 71, ALP 208 - COLON risk profile: - Hgb A1c: 4.9 % - Lipid panel: TC 90, LDL 40, HDL 26, TG 119 - HCV Ab: negative - Liver ultrasound: "increased hepatic echotexture probably fatty infiltration" # Essential Tremors - Continue home PRN propanolol Boris Cr M.D.
[2023-02-12] MEDS: BENZONATATE 100 MG CAP PO PRN (21:16)
[2023-02-12] MEDS: ATORVASTATIN 40 MG TAB PO SCH (21:16)
[2023-02-12] MEDS: ALPRAZOLAM 0.25 MG TABLET PO PRN (21:16)
[2023-02-13 03:53] LABS: Phosphorus 5.2 mg/dL (2.5-4.9)
[2023-02-13] MEDS: ENOXAPARIN 60 MG/0.6 ML SQ SCH ×2 (09:10→20:59)
[2023-02-13] MEDS: POTASSIUM CL SA 10 MEQ TAB PO SCH (09:11)
[2023-02-13] MEDS: ASPIRIN EC 81 MG TAB PO SCH (09:11)
[2023-02-13] MEDS: DILTIAZEM HCL 180 MG SR CAP PO SCH (09:11)
[2023-02-13] MEDS: FUROSEMIDE 40 MG/4 ML VIAL IV SCH ×2 (09:12→16:40)
--- NOTE | 2023-02-13 17:41 | EKG ---
Test Date: 2023-02-10 Test Time: 14:51:03 Motor Vehicle Examiner: SHAMEKA MEASUREMENT RESULTS: Intervals: Rate: 92 SC: 168 QRSD: 110 QT: 386 QTc: 477 [place]: P: 93 SC: 168 QRS: 67 T: 162 INTERPRETIVE STATEMENTS: Normal sinus rhythm Possible Left atrial enlargement Lateral infarct, age undetermined Abnormal ECG Compared to ECG 03/25/2022 17:12:55 Myocardial infarct finding now present T-wave abnormality no longer present Possible ischemia no longer present Prolonged QT interval no longer present Electronically Signed On 02-13-23 17:36:59 CDT by Manjinder Alston
--- NOTE | 2023-02-13 17:56 | CON ---
Date of Consultation: 02/13/2023 Reason For Consultation: Shortness of breath. History Of Present Illness: This is a 52-year-old female with known history of hypertrophic cardiomy opathy, has an ICD in place, presented with shortness of breath, chest tightness and orthopnea. No e courtney. No nausea, vomiting, or diaphoresis. No cough. Initially, she had signs of heart failure. A fter Lasix, she felt significantly better. Past Medical History: As outlined above in HPI. Medications: Refer to reconciliation sheet for detailed list. Allergies: NO KNOWN DRUG ALLERGIES. Family History: No premature coronary artery disease or cancer. Social History: She does not smoke or drink. Does not use any drugs. Review of Systems: All systems reviewed and they were negative except what mentioned in HPI. Physical Examination: Vital Signs: Reviewed. Head and Neck: Pupils are equal, reactive to light. Intact eye movements. No JVD. No cervical lym phadenopathy. Neck is supple. Thyroid is not enlarged. Lungs: Clear to auscultation bilaterally. No rhonchi, wheezing, or crackles. No accessory muscle u se. Heart: Regular rate and rhythm. No extra sounds. Abdomen: Soft, nontender. Bowel sounds positive. No organomegaly. No masses or hernia. No rigidi ty or rebound. Extremities: No edema, clubbing, or cyanosis. Intact pulses. Skin: No rash. Neurologic: Alert, awake, oriented x3. No acute focal deficits appreciated. Investigations: Troponin 526, 585, and 547. BUN is 10, creatinine 0.64, hemoglobin is 12.7. Assessment And Recommendations: 1.Acute congestive heart failure exacerbation. The patient is known to have hypertrophic cardiomyop athy. CT of the chest, there was no PE, but there is congestive heart failure. Recommend careful di uresis and if blood pressure allows, increase diltiazem to keep the heart rate close to the 50 range. 2.Elevated troponin. Obtain a Lexiscan nuclear stress test to further assess the presence of ischem ia. She might require coronary angiogram during this hospital stay. SR/MODL Voice ID: [id number] Report ID: [id number]
[2023-02-13] MEDS: ALPRAZOLAM 0.25 MG TABLET PO PRN (20:59)
[2023-02-13] MEDS: ATORVASTATIN 40 MG TAB PO SCH (21:00)
[2023-02-13] MEDS: BENZONATATE 100 MG CAP PO PRN (21:04)
[2023-02-14] MEDS ORDERED: REGADENOSON 0.4 MG/5 ML SYR IV ONE (08:35)
[2023-02-14] MEDS: ENOXAPARIN 60 MG/0.6 ML SQ SCH (08:55)
[2023-02-14] MEDS: FUROSEMIDE 40 MG/4 ML VIAL IV SCH ×2 (08:55→17:41)
[2023-02-14] MEDS: POTASSIUM CL SA 10 MEQ TAB PO SCH (08:55)
[2023-02-14] MEDS: ASPIRIN EC 81 MG TAB PO SCH (08:55)
[2023-02-14] MEDS: DILTIAZEM HCL 180 MG SR CAP PO SCH (08:56)
--- NOTE | 2023-02-14 13:07 | RAD REPORT ---
EXAM DESCRIPTION: NM - Rest Stress Cardiac Imaging - 02/14/2023 12:16 pm CLINICAL HISTORY: ELEVATED TROPONIN Chest pain. COMPARISON: No comparisons TECHNIQUE: The patient was administered approximately 10mCi of Tc 99m Sestamibi prior to resting SPE CT imaging of the heart. The patient was then administered approximately 30 mCi of Tc 99m Sestamibi f ollowing exercise or pharmacologic stress. Multiplanar SPECT images were reviewed. FINDINGS: Left ventricular cavity appears enlarged. Multiple fixed defects are present, greatest in the LV apex compatible with scar tissue from old infarct. A stress-induced ischemia defect is not se en but assessment is limited by significant scarred myocardium. The end diastolic volume is 129 ml, the end systolic volume is 91 ml, and the ejection fraction is 30 %. IMPRESSION: Mild ventricular dilatation is seen with multiple moderate to large areas of scar myocar dium. Stress-induced defect not seen however assessment limited.
--- NOTE | 2023-02-14 13:12 | ECHO ---
HEIGHT: 5 ft 4 in WEIGHT: 100 lb 0 oz DATE OF STUDY: 02/13/[address]: Kip Gallardo NP 2-DIMENSIONAL: YES M.MODE: YES DOPPLER: YES COLOR FLOW: YES TDS: PORTABLE: YES DEFINITY: BUBBLE STUDY: DIAGNOSIS: CONGESTIVE HEART FAILURE CARDIAC HISTORY: CATHERIZATION: SURGERY: PROSTHETIC VALVE: PACEMAKER: MEASUREMENTS (cm) DIASTOLIC (NORMALS) SYSTOLIC (NORMALS) IVSd 1.2 (0.6-1.2) LA Diam 4.7 (1.9-4.0) LVEF 40% LVIDd 3.8 (3.5-5.7) LVIDs 3.2 (2.0-3.5) %FS 15% LVPWd 1.1 (0.6-1.2) Ao Diam 2.8 (2.0-3.7) 2 DIMENSIONAL ASSESSMENT: RIGHT ATRIUM: NORMAL LEFT ATRIUM: ENLARGED (SEVERE) RIGHT VENTRICLE: NORMAL LEFT VENTRICLE: LEFT VENTRICULAR HYPERTROPHY TRICUSPID VALVE: MILD TRICUSPID REGURGITATION MITRAL VALVE: MILD MITRAL REGURGITATION PULMONIC VALVE: MILD PULMONIC INSUFFICIENCY AORTIC VALVE: NORMAL PERICARDIAL EFFUSION: SMALL AORTIC ROOT: NORMAL LEFT VENTRICULAR WALL MOTION: MODERATE GLOBAL HYPOKINESIS DOPPLER/COLOR FLOW: SEE BELOW COMMENTS: 1. MODERATELY DEPRESSED LEFT VENTRICULAR EJECTION FRACTION 40-45% 2. MODERATE GLOBAL HYPOKINESIS 3. SYSTOLIC ANTERIOR MOTION IS SEEN WITH MILD MITRAL REGURGITATION 4. LEFT ATRIAL ENLARGEMENT (SEVERE) 5. SMALL PERICARDIAL EFFUSION 6. MODERATE PULMONARY HYPERTENSION WITH RIGHT VENTRICULAR SYSTOLIC PRESSURE AT 55-60 mmHg TECHNOLOGIST: CHUCK ROSAS
--- NOTE | 2023-02-14 13:34 | TREADPHA ---
DX: ELEVATED TROPONIN Date of Study: 02/14/2023 Ht: 5' 4 " Wt: 100 lb 0 oz Consulting Physician: SAHARA MEDICATIONS: TYELNOL, XANAX, ASPIRIN, LIPITOR, CARDIZEM, LOVENOX, LASIX, ZOFRAN, KLOR-CON, INDERAL, PROVENTIL HISTORY: 52 YEAR OLD FEMALE WITH COMPLAINTS OF CHEST PAIN. HISTORY OF HYPERTROPHIC CARDIOMYOPATHY WITH IMPLANTABLE CARIOVERTER-DEFIBRILLATOR. FORMER ETHYL ALCOHOL USE, FORMER SMOKER TIMES FIFTEEN YEARS, ONE PACK PER DAY, QUIT DRINKING AND SMOKING FIVE YEARS AGO. HAS HAD HEART CATHERIZATION IN 2016. NO INTERVENTION NECESSARY. PHYSICIAL EXAMINATION: RESTING B.P.: 110/81 RESTING H.R.: 90 RESTING EKG: NORMAL SINUS RHYHTM WITH DIFFUSE ST DEPRESSION PROTOCOL: PHARMACOLOGIC EXERCISE TIME: 3:30 B.P. AT PEAK STRESS: 111/82 IMPRESSION: LEXISCAN INJECTED, CARDIOLITE INJECTED PER PROTOCOL. SEE NUCLEAR MEDICINE REPORT. NO SUPRAVENTRICULAR TACHYCARDIA, VENTRICULAR TACHCYARDIA, PREMATURE ATRIAL COMPLEXES. PREMATURE VENTRICULAR COMPLEXES NOTED IN RECOVERY. DENIES CHEST PAIN. NON-DIASTOLIC ELECTROCARDIOGRAM PORTION DUE TO ABNORMAL BASELINE ELECTROCARDIOGRAM.
[2023-02-14 15:33] VITALS: O2SAT 96
[2023-02-14 16:34] VITALS: BP 102/77; TEMP 98.9
--- NOTE | 2023-02-14 17:59 | PN ---
Date of Progress Note: 02/14/2023 Subjective: Seen by bedside. Doing clinically well. Does not have any chest pain. Mild shortness of breath. No nausea, vomiting, or diarrhea. All other systems reviewed, they are negative. Physical Examination: Vital signs: Reviewed. Head and Neck: Pupils are equal, reactive to light. Intact eye movements. No JVD. No cervical lym phadenopathy. Neck is supple. Thyroid is not enlarged. Lungs: Clear to auscultation bilaterally. No rhonchi, rales, or crackles. No accessory muscle use. Heart: Regular rate and rhythm. No extra sounds. Abdomen: Soft, nontender. Bowel sounds positive. No organomegaly. No masses or hernia. No rigidi ty or rebound. Extremities: No clubbing, cyanosis. Intact pulses. Skin: No rash. Neurologic: Alert, awake, oriented x3. No acute focal deficits appreciated. Investigations: BUN is 10, creatinine 0.64, and troponin 547, and hemoglobin is 12.7. Assessment And Recommendations: 1.Acute on chronic congestive heart failure exacerbation. On echo, her ejection fraction is above 4 0% and stress test was limited. Troponin was slightly elevated. I recommend coronary angiogram, how ever, she refused. She said that she had coronary angiogram in 2016 that was normal totally and she would like to follow up with her primary chalk machine operator. She was instructed to follow up as soon as sh e is discharged. 2.Hypertrophic cardiomyopathy on echo with the septum is not very enlarged, but there is systolic an terior motion of the mitral valve. Definitely, I would recommend to continue diltiazem for heart rat e control and follow up with her primary chalk machine operator post discharge. Given the fact the patient ref used coronary angiogram and she is clinically stable, Cardiology will sign off and have her follow up with her chalk machine operator a s an outpatient. /GAB Voice ID: [id number] Report ID: [id number]
== END 2023-02-14 18:00 | disposition home or self-care (01) | DRG 281 ==
LOC: ER 14:24 → ERHOLD 17:08 → 2ND 02-11 16:59 → OBSVTOIN 02-12 19:08
PROVIDERS: ADMIT Internal Medicine; ATTEND Hospitalist
DX: I50.33 Acute on chronic diastolic (congestive) heart failure (principal); I21.A1 Myocardial infarction type 2; I42.1 Obstructive hypertrophic cardiomyopathy; F41.9 Anxiety disorder, unspecified; E87.6 Hypokalemia; G25.0 Essential tremor; K76.0 Fatty (change of) liver, not elsewhere classified; I25.2 Old myocardial infarction; Z79.01 Long term (current) use of anticoagulants; Z95.810 Presence of automatic (implantable) cardiac defibrillator; Z90.710 Acquired absence of both cervix and uterus; Z87.891 Personal history of nicotine dependence; Z79.899 Other long term (current) drug therapy; Z20.822 Contact with and (suspected) exposure to COVID-19
CPT/HCPCS: 36415; 71045; 71275; 76705; 78452; 80048; 80053; 80061; 83036; 83735; 83880; 84100; 84484; 85025; 85379; 86803; 93005; 93017; 93306; 93970; 94640; 96374; 99285; A9500; G0378; J1650; J1940; J2785; J3475; J3480; J7050; J7613; Q9967; U0003

== ENCOUNTER 2025-07-10 13:43 | Inpatient (IN) | payer OTHER ==
[2025-07-10 14:35] LABS: Absolute Lymphocytes (CBC) 1.7 K/uL (0.7-4.9); Hematocrit 36.2 % (36.0-45.0); Hemoglobin 12.0 g/dL (12.0-15.0); MCH 31.5 pg (27.0-35.0); MCHC 33.1 g/dL (32.0-36.0); MCV 95.3 fL (80-100); MPV 10.0 fL (7.6-11.3); Nucleated RBC Absolute Count 0.0 (0-0); Nucleated Red Blood Cells % 0.0 % (0-0); RBC Red Blood Cell Count 3.80 M/uL (3.86-4.86); White Blood Count 8.80 thou/uL (4.3-10.9)
[2025-07-10 14:42] LABS: PT Prothrombin Time 13.1 SECONDS (10-13.0); Protime INR 1.16
[2025-07-10 14:55] LABS: Anion Gap 7.9 mEq/L (5.0-15.0); BUN Blood Urea Nitrogen 13.0 mg/dL (7-18); Glucose Level 108.0 mg/dL (74-106); Magnesium 2.1 mg/dL (1.6-2.4); NT PRO-BNP 8211.0 pg/mL (<125); Potassium 3.9 mEq/L (3.5-5.1)
[2025-07-10 15:00] LABS: Troponin High Sensitivity 692.9 pg/mL (<58.9)
--- NOTE | 2025-07-10 15:12 | ER ---
Nurse's Notes [facility] [place] [address] [place] Name: Luly Desir Age: 54 yrs Sex: Female : 1970 Arrival Date: 07/10/2025 Time: 13:43 Bed 23 Private MD: Diagnosis: Heart failure, unspecified;Subsequent non-ST elevation (NSTEMI) myocardial infarction;Dyspnea Presentation: 07/10 13:58 Chief complaint: Patient states: SOB x 1 week and worse since last night and hoarse aa5 voice. Coronavirus screen: At this time, the client does not indicate any symptoms associated with coronavirus-19. Ebola Screen: Patient denies travel to an Ebola-affected area in the 21 days before illness onset. Initial Sepsis Screen: Does the patient meet any 2 criteria? RR > 20 per min. HR > 90 bpm. Yes Does the patient have a suspected source of infection? No. Patient's initial sepsis screen is negative. Risk Assessment: Do you want to hurt yourself or someone else? Patient reports no desire to harm self or others. Onset of symptoms was June 2025. 13:58 Acuity: ALYX 3 aa5 13:58 Method Of Arrival: Ambulatory aa5 Triage Assessment: 17:28 General: Appears. db Historical: - Allergies: 14:00 No Known Allergies; aa5 - PMHx: 13:57 CHF; Hypertrophic obstructive cardiomyopathy; Myocardial infarction; Breast Cancer aa5 (Unknown); - PSHx: 13:57 defib replacement; Right partial mastectomy (Unknown); aa5 - Immunization history:: Adult Immunizations unknown. - Infectious Disease History:: Denies. - Social history:: Smoking status: Patient denies any tobacco usage or history of. Screenin:11 [facility] ED Fall Risk Assessment (Adult) History of falling in the last 3 months, db including since admission No falls in past 3 months (0 pts) Confusion or Disorientation No (0 pts) Intoxicated or Sedated No (0 pts) Impaired Gait No (0 pts) Mobility Assist Device Used No (0 pt) Altered Elimination No (0 pt) Score/Fall Risk Level 0 - 2 = Low Risk Oriented to surroundings. Abuse screen: Denies threats or abuse. Denies injuries from another. Nutritional screening: No deficits noted. Tuberculosis screening: No symptoms or risk factors identified. Assessment: 14:38 Reassessment: Patient appears in no apparent distress at this time. Patient and/or db family updated on plan of care and expected duration. Pain level reassessed. Patient is alert, oriented x 3, equal unlabored respirations, skin warm/dry/pink. Pain: Denies pain. 15:00 Reassessment: Dr. Tatum notified of critical lab value. Troponin 692.9. ss 16:00 Reassessment: Patient appears in no apparent distress at this time. Patient and/or db family updated on plan of care and expected duration. Pain level reassessed. Patient is alert, oriented x 3, equal unlabored respirations, skin warm/dry/pink. 17:15 Reassessment: Patient appears in no apparent distress at this time. Patient and/or db family updated on plan of care and expected duration. Pain level reassessed. Patient is alert, oriented x 3, equal unlabored respirations, skin warm/dry/pink. General: Appears in no apparent distress. comfortable, Behavior is calm, cooperative. Pain: Denies pain. Neuro: Level of Consciousness is awake, alert, obeys commands, Oriented to person, place, time, situation. Cardiovascular: Rhythm is sinus rhythm. Respiratory: Reports shortness of breath on exertion Airway is patent Respiratory effort is even, unlabored, Breath sounds are clear. Vital Signs: 13:58 BP 96 / 73; Pulse 102; Resp 24 S; Temp 98.5(O); Pulse Ox 97% on R/A; Weight 52.16 kg aa5 (R); Height 5 ft. 3 in. (R); 14:20 BP 99 / 74; Pulse 91; Resp 22; Pulse Ox 98% on R/A; db 15:00 BP 102 / 75; Pulse 94; Resp 22; Pulse Ox 95% ; db 16:00 BP 107 / 82; Pulse 102; Resp 18; Pulse Ox 99% 2 lpm ; db 13:58 Body Mass Index 20.37 (52.16 kg, 160.02 cm) aa5 ED Course: 13:44 Patient arrived in ED. mr 13:51 Salty Tatum DO is Attending Physician. ms3 13:57 Arm band placed on. aa5 14:00 Triage completed. aa5 14:09 Jasmyne Rossi, RN is Primary Nurse. db 14:23 Initial lab(s) drawn, by me, sent to lab. EKG done, reviewed by Salty Tatum DO. db Inserted saline lock: 22 gauge in right forearm, using aseptic technique. Blood collected. Flushed with 10 mL NS. 14:30 Patient has correct armband on for positive identification. Bed in low position. Call db light in reach. Side rails up X 1. Client placed on continuous cardiac and pulse oximetry monitoring. NIBP monitoring applied. monitoring tech on. Pulse ox on. NIBP on. Warm blanket given. Pillow given. 14:37 XRAY Chest (1 view) In Process Unspecified. EDMS 15:10 Prince Johnson MD is Hospitalizing Provider. ms3 17:15 Provided Education on: ADMISSION. db 17:15 No provider procedures requiring assistance completed. Patient admitted, IV remains in db place. Administered Medications: 16:01 Drug: Heparin ([place] Drip) 12 units/kg/[place] - ([place] [address] units, D5W IV 500 ml) IV at db calculated rate Per protocol; Max initial rate 1000 units/hr {Co-Signature: jeniffer (Frances Ghosh RN).} {Note: 600 UNITS/HR.} Route: IV; Rate: calculated rate; Site: right forearm; 17:26 Follow up: Response: No adverse reaction; IV Status: Order to discontinue infusion db 16:01 Drug: Heparin ([place]-Bolus No thrombolytic) - HEParin IVP 60 units/kg IVP once; Max 5000 db units {Co-Signature: jeniffer (Frances Ghosh RN).} Route: IVP; Site: right forearm; 17:26 Follow up: Response: No adverse reaction db 16:02 Drug: Aspirin PO Chewable Tablet 324 mg PO once; 81 mg tablets x 4 Route: PO; db 17:00 Follow up: Response: No adverse reaction db Medication: 16:12 VIS not applicable for this client. db Outcome: 15:11 Decision to Hospitalize by Provider. ms3 17:15 Admitted to Med/surg room 422, db 17:15 Condition: stable 17:15 Instructed on the need for admit, 17:20 Patient left the ED. ph Signatures: Dispatcher [employer] EDIN Eve Berry, Reg Reg mr Cammy Fitch, RN RN aa5 Frances Ghosh, RN RN ss Jessy Leger RN RN ph Salty Tatum, DO ms3 Jasmyne Rossi RN RN db Frances Ghosh RN ss Corrections: (The following items were deleted from the chart) 14: 13:58 Initial Sepsis Screen: Does the patient meet any 2 criteria? No. Patient's aa5 initial sepsis screen is negative. Does the patient have a suspected source of infection? No. Patient's initial sepsis screen is negative. aa5 14:01 13:58 BP 96 / 73; Pulse 102bpm; Resp 24bpm; Spontaneous; Pulse Ox 97% RA; Temp 98.5F aa5 Oral; aa5
--- NOTE | 2025-07-10 15:12 | EDPHYS ---
Physician Documentation [facility] Name: Luly Desir Age: 54 yrs Sex: Female : 1970 Arrival Date: 07/10/2025 Time: 13:43 Bed 23 Private MD: ED Physician Salty Tatum HPI: 07/10 14:32 This 54 yrs old Female presents to ER via Ambulatory with complaints of Breathing ms3 Difficulty. 14:32 54-year-old female with past medical history of congestive heart failure, hypertrophic ms3 obstructive cardiomyopathy, myocardial infarction, breast cancer presents to the emergency department for shortness of breath and difficulty breathing for 1 week. Patient states her shortness of breath became worse last night. Shortness of breath is worse when laying down or exertion. Patient denies pain at this time. Patient denies nausea, vomiting, fevers, chills.. Historical: - Allergies: 14:00 No Known Allergies; aa5 - PMHx: 13:57 CHF; Hypertrophic obstructive cardiomyopathy; Myocardial infarction; Breast Cancer aa5 (Unknown); - PSHx: 13:57 defib replacement; Right partial mastectomy (Unknown); aa5 - Immunization history:: Adult Immunizations unknown. - Infectious Disease History:: Denies. - Social history:: Smoking status: Patient denies any tobacco usage or history of. ROS: 14:32 Constitutional: Negative for fever, and chills. Cardiovascular: Negative for chest ms3 pain, and palpitations. 14:32 Abdomen/GI: Negative for abdominal pain, nausea, vomiting, diarrhea, and constipation, MS/Extremity: Negative for injury and deformity, Skin: Negative for injury, rash, and discoloration, 14:32 Respiratory: Positive for dyspnea on exertion, shortness of breath, Exam: 14:32 Constitutional: This is a well developed, well nourished patient who is awake, alert, ms3 and in no acute distress. Cardiovascular: Regular rate and rhythm with a normal S1 and S2. No gallops, murmurs, or rubs. Normal PMI, no JVD. No pulse deficits. Respiratory: Lungs have equal breath sounds bilaterally, clear to auscultation and percussion. No rales, rhonchi or wheezes noted. No increased work of breathing, no retractions or nasal flaring. Abdomen/GI: Soft, non-tender, with normal bowel sounds. No distension or tympany. No guarding or rebound. No evidence of tenderness throughout. Skin: Warm, dry with normal turgor. Normal color with no rashes, no lesions, and no evidence of cellulitis. MS/ Extremity: Pulses equal, no cyanosis. Neurovascular intact. Full, normal range of motion. 14:32 ECG was reviewed by the Attending Physician. ms3 Vital Signs: 13:58 BP 96 / 73; Pulse 102; Resp 24 S; Temp 98.5(O); Pulse Ox 97% on R/A; Weight 52.16 kg aa5 (R); Height 5 ft. 3 in. (R); 14:20 BP 99 / 74; Pulse 91; Resp 22; Pulse Ox 98% on R/A; db 15:00 BP 102 / 75; Pulse 94; Resp 22; Pulse Ox 95% ; db 16:00 BP 107 / 82; Pulse 102; Resp 18; Pulse Ox 99% 2 lpm ; db 13:58 Body Mass Index 20.37 (52.16 kg, 160.02 cm) aa5 MDM: 13:57 Medical Screening Exam initiated ms3 15:12 Differential diagnosis: Anemia CHF exacerbation, Chronic Obstructive Pulmonary Disease ms3 Myocardial Infarction pulmonary edema. Data reviewed: vital signs, nurses notes, lab test result(s), EKG, radiologic studies, and as a result, I will admit patient. Consideration of Admission/Observation Patient was admitted/placed on observation. Management of patient was discussed with the following: Hospitalist: Dr Moran. 15:13 I considered the following discharge prescriptions or medication management in the [facility] emergency department Medications were administered in the Emergency Department. See MAR. Independent interpretation of the following test(s) in the Emergency Department EKG: See my EKG interpretation above X-Ray: My interpretation is CXR image reviewed by me shows mild pulmonary edema. Counseling: I had a detailed discussion with the patient and/or guardian regarding the historical points, exam findings, and any diagnostic results supporting the discharge/admit diagnosis, lab results, radiology results, the need for further work-up and treatment in the hospital. ED course: Discussed labs and necessity for admission with patient. She understands agrees with plan. Discussed case with hospitalist and he accepts patient. All questions were answered.. 15:31 ED course: Discussed case with Dr Alston and he would like the troponin trended and ms3 heparin ggt. 07/10 13:58 Order name: Basic Metabolic Panel; Complete Time: 15:05 ms3 07/10 13:58 Order name: CBC with Diff; Complete Time: 15:05 ms3 07/10 13:58 Order name: Magnesium; Complete Time: 15:05 ms3 07/10 13:58 Order name: NT PRO-BNP; Complete Time: 15:05 ms3 07/10 13:58 Order name: PT-INR; Complete Time: 15:05 ms3 07/10 13:58 Order name: Troponin HS; Complete Time: 15:05 ms3 07/10 15:20 Order name: Magnesium EDMS 07/10 15:20 Order name: Phosphorus EDMS 07/10 15:20 Order name: Protime (+INR) EDMS 07/10 15:20 Order name: PTT, Activated Partial Thromb EDMS 07/10 15:20 Order name: Basic Metabolic Panel EDMS 07/10 15:20 Order name: Basic Metabolic Panel EDMS 07/10 15:20 Order name: CBC with Automated Diff EDMS 07/10 15:20 Order name: CBC with Automated Diff EDMS 07/10 15:20 Order name: Lipid Profile EDMS 07/10 15:20 Order name: Lipid Profile EDMS 07/10 15:20 Order name: NT PRO-BNP EDMS 07/10 15:20 Order name: NT PRO-BNP EDMS 07/10 15:20 Order name: Troponin High Sensitivity EDMS / 15:20 Order name: Troponin High Sensitivity EDMS 07/10 15:20 Order name: Troponin High Sensitivity EDMS 07/10 15:20 Order name: Troponin High Sensitivity EDMS 07/10 15:20 Order name: Troponin High Sensitivity EDMS 07/10 16:04 Order name: PTT, Activated Partial Thromb EDMS 07/10 13:58 Order name: XRAY Chest (1 view); Complete Time: 15:32 ms3 07/10 15:20 Order name: Echo with Doppler EDMS 07/10 13:58 Order name: EKG; Complete Time: 13:58 ms3 07/10 13:58 Order name: Cardiac monitoring; Complete Time: 15:21 ms3 07/10 13:58 Order name: EKG - Nurse/Tech; Complete Time: 15:21 ms3 07/10 13:58 Order name: IV Saline Lock; Complete Time: 15:21 ms3 07/10 13:58 Order name: Labs collected and sent; Complete Time: 15: ms3 07/10 13:58 Order name: O2 Per Protocol; Complete Time: 15:21 ms3 07/10 13:58 Order name: O2 Sat Monitoring; Complete Time: 15:21 ms3 EC:32 Rate is 94 beats/min. Rhythm is regular. Left axis deviation noted. IA interval is ms3 normal. QRS interval is prolonged. Clinical impression: NSR w/ Non-specific ST/T Changes and With left bundle branch block. Interpreted by me. Reviewed by me. Administered Medications: 16:01 Drug: Heparin ([place] Drip) 12 units/kg/[place] - ([place] [address] units, D5W IV 500 ml) IV at db calculated rate Per protocol; Max initial rate 1000 units/hr {Co-Signature: jeniffer (Frances Ghosh RN).} {Note: 600 UNITS/HR.} Route: IV; Rate: calculated rate; Site: right forearm; 17:26 Follow up: Response: No adverse reaction; IV Status: Order to discontinue infusion db 16:01 Drug: Heparin ([place]-Bolus No thrombolytic) - HEParin IVP 60 units/kg IVP once; Max 5000 db units {Co-Signature: jeniffer (Frances Ghosh RN).} Route: IVP; Site: right forearm; 17:26 Follow up: Response: No adverse reaction db 16:02 Drug: Aspirin PO Chewable Tablet 324 mg PO once; 81 mg tablets x 4 Route: PO; db 17:00 Follow up: Response: No adverse reaction db Disposition: 15:13 Critical Care:. ms3 Disposition Summary: 07/10/25 15:11 Hospitalization Ordered Notes: Hospitalization Status: Inpatient Admission ms3 Provider: Prince yadi Johnson3 Location: Telemetry/MedSurg (Inpatient) ms3 Condition: Stable ms3 Problem: new ms3 Symptoms: are unchanged ms3 Bed/Room Type: Standard ms3 Room Assignment: 422(07/10/25 15:36) bc6 Diagnosis - Heart failure, unspecified ms3 - Subsequent non-ST elevation (NSTEMI) myocardial infarction ms3 - Dyspnea ms3 Forms: - Medication Reconciliation Form ms3 - SBAR form ms3 - Leadership Thank You Letter ms3 Critical care time excluding procedures: 15:13 Critical care time: Bedside Care: 30 minutes, Consultation: 5 minutes. Total time: 35 ms3 minutes Signatures: Dispatcher [employer] EDCammy Parker, RN RN aa5 Salty Tatum DO DO ms3 Jasmnye Rossi RN RN db Christin Merida bc6 Frances Ghosh RN ss Corrections: (The following items were deleted from the chart) 15:36 15:11 ms3 bc6
[2025-07-10] MEDS ORDERED: IPRATROPIUM BROM 0.5MG/2.5ML NEB PRN (15:14)
[2025-07-10] MEDS ORDERED: NITROGLYCERIN 0.4 MG/TAB SL PRN (15:14)
[2025-07-10] MEDS ORDERED: ONDANSETRON 4 MG/2 ML VIAL IV PRN (15:14)
[2025-07-10] MEDS ORDERED: ALBUTEROL 2.5 MG/3 ML NEB SOL NEB PRN (15:14)
--- NOTE | 2025-07-10 15:21 | P.HP ---
Certification for Inpatient Patient admitted to: Inpatient With expected LOS: >2 Midnights Practitioner: I am a practitioner with admitting privileges, knowledge of patient current condition, hospital course, and medical plan of care. Services: Services provided to patient in accordance with Admission requirements found in Title 42 Section 412.3 of the Code of Federal Regulations Patient History Date of Service: 07/10/25 Reason for admission: NSTEMI History of Present Illness: Patient is a 54-year-old female with known past medical history of hypertrophic cardiomyopathy status post AICD and severe pulmonary hypertension. Patient presented to the ER complaining of shortness of breath which has been going on for some time. Her symptoms been progressively worsening especially when lying flat. She is now experiencing chest pain and cough. Patient denies any lower extremity edema. She also denies any fever or chills. She arrived in the ER with elevated troponin in the 600 range. Her troponin has been chronically elevated since 2022. Her BNP is 8211. EKG shows left bundle branch block. During my evaluation, patient appeared euvolemic. She is on room air and hemodynamically stable. Her chest x-ray shows right basilar infiltrates and possible COPD. Allergies No Known Allergies Allergy (Verified 10/10/18 00:41) Home Medications: Furosemide [Lasix] 1 tab PO DAILY PRN 02/11/23 Potassium Oral Tab [Klor-Con 10 mEq Tab*] 2 tab PO DAILY PRN 02/11/23 Benzonatate [Tessalon Perle*] 100 mg PO TID PRN #30 cap 02/14/23 Propranolol [Inderal*] 10 mg PO BID PRN #60 tab 02/14/23 dilTIAZem HCL [Cardizem Cd] 240 mg PO DAILY #30 cap 02/14/23 - Past Medical/Surgical History Diabetic: No -: myocardial infarction -: hypertrophic obstructive cardiopathy -: pacemaker, cardioverted, defibrillator -: partial hysterectomy -: removal of tumor on the neck April 2018 -: Laparoscopy ovarian cyst removed Psychosocial/ Personal History: Patient lives at home with her family - Family History Mother -: Heart disease, Other (see notes) Notes: heart transplant Father -: Cancer - Social History Alcohol use: Yes CD- Drugs: No Caffeine use: Yes Physical Examination - Physical Exam General: In no apparent distress, Cooperative HEENT: Atraumatic, Normocephalic Respiratory: Clear to auscultation bilaterally, Normal air movement Cardiovascular: No edema, Normal pulses, Regular rate/rhythm, Normal S1 S2, Systolic murmur Neurological: Normal speech - Studies Laboratory Data (last 24 hrs) 07/10/25 07/10/25 07/10/25 14:28 14:28 14:28 WBC 8.80 Hgb 12.0 Hct 36.2 Plt Count 190 PT 13.1 H INR 1.16 Sodium 140 Potassium 3.9 BUN 13 Creatinine 0.78 Glucose 108 H Magnesium 2.1 Assessment and Plan - Plan Assessment This is a 54-year-old female with known history of hypertrophic obstructive cardiomyopathy and chronic elevated troponin who presented to the ER complaining of shortness of breath worsened with lying flat. Patient has mild pulmonary edema on chest x-ray. Troponin and BNP are elevated. Acute hypoxemic respiratory failure NSTEMI Hypertrophic obstructive cardiomyopathy Possible pneumonia COPDnot in acute exacerbation Plan: Will admit inpatient with telemetry Will administer a full dose Lovenox x 1 as per ACS protocol Trend troponin and obtain a 2D echo Case discussed with cardiology She will be n.p.o. after midnight for possible angiogram tomorrow Resume home regimen which include propranolol and diltiazem overall Unasyn for possible pneumonia DuoNebs as needed GI prophylaxis - Advance Directives Does patient have a Living Will: No Does patient have a Durable POA for Healthcare: No
--- NOTE | 2025-07-10 15:26 | RAD REPORT ---
EXAMINATION: ONE VIEW CHEST XR CLINICAL INDICATION: DYSPNEA TECHNIQUE: Frontal chest projection is submitted. Examination is limited by patient positioning and t echnique. COMPARISON: 02/10/2023 FINDINGS: The lungs are diffusely emphysematous with mild linear opacities in the right lung base. Left lung is grossly clear. The heart is upper limit of normal in size. No displaced fractures identified. Left-sided stimulator device noted. IMPRESSION: COPD possible early infiltrate right base..
[2025-07-10] MEDS ORDERED: PROPRANOLOL HCL 10 MG TAB PO PRN (15:38)
[2025-07-10] MEDS ORDERED: BENZONATATE 100 MG CAP PO PRN (15:38)
[2025-07-10] MEDS ORDERED: HEPARIN 5000 UNIT/ML 1 ML VIAL ONE (15:54)
[2025-07-10] MEDS ORDERED: HEPARIN/D5W 25,000 UNIT/500 ML BAG IV ONE (15:54)
[2025-07-10] MEDS ORDERED: ASPIRIN 81 MG CHEWABLE TABLET ONE (15:55)
[2025-07-10] MEDS ORDERED: HEPARIN/D5W 25,000 UNIT/500 ML BAG IV SCH (16:00)
[2025-07-10] MEDS: FUROSEMIDE 40 MG/4 ML VIAL IV SCH (17:00)
[2025-07-10] MEDS: ENOXAPARIN 60 MG/0.6 ML SQ ONE (17:47)
[2025-07-10] MEDS: AMPICILLIN/SULBACT 3 GM in NA CHLORIDE 0.9% 100 ML IVPB SCH (17:48)
[2025-07-10 18:40] VITALS: BMI 20.3
[2025-07-11] MEDS: PANTOPRAZOLE 40MG TABLET PO SCH (05:51)
[2025-07-11 07:15] LABS: Absolute Lymphocytes (CBC) 1.3 K/uL (0.7-4.9); Hematocrit 36.4 % (36.0-45.0); Hemoglobin 12.0 g/dL (12.0-15.0); MCH 31.6 pg (27.0-35.0); MCHC 33.0 g/dL (32.0-36.0); MCV 95.5 fL (80-100); MPV 10.4 fL (7.6-11.3); Nucleated RBC Absolute Count 0.0 (0-0); Nucleated Red Blood Cells % 0.0 % (0-0); RBC Red Blood Cell Count 3.81 M/uL (3.86-4.86); White Blood Count 6.60 thou/uL (4.3-10.9)
[2025-07-11 07:26] LABS: PT Prothrombin Time 12.8 SECONDS (10-13.0); PTT, Activated Partial Thromb 27.8 SECONDS (27.2-37.4); Protime INR 1.14
[2025-07-11 07:35] LABS: Anion Gap 7.7 mEq/L (5.0-15.0); BUN Blood Urea Nitrogen 10.0 mg/dL (7-18); Glucose Level 103.0 mg/dL (74-106); HDL Cholesterol 34.0 mg/dL (40-60); LDL Cholesterol, Calculated 121.0 mg/dL (<130); LDL Cholesterol,Calc NonReport 121.0; Magnesium 2.2 mg/dL (1.6-2.4); NT PRO-BNP 7479.0 pg/mL (<125); Potassium 3.7 mEq/L (3.5-5.1)
[2025-07-11] MEDS ORDERED: ENOXAPARIN 40 MG/0.4 ML SQ SCH (09:00)
[2025-07-11] MEDS: DILTIAZEM HCL 120 MG SR CAP PO SCH (09:00)
[2025-07-11] MEDS: ASPIRIN EC 81 MG TAB PO SCH (09:30)
[2025-07-11 12:18] VITALS: BP 119/71; TEMP 98.5
[2025-07-11 12:51] VITALS: O2SAT 100
--- NOTE | 2025-07-11 13:38 | P.DS ---
Admission Date: 07/10/25 Discharge Date: 07/11/25 Disposition: ROUTINE DISCHARGE Discharge Condition: GOOD Reason for Admission: NSTEMI Brief History of Present Illness: Patient is a 54-year-old female with known past medical history of hypertrophic cardiomyopathy status post AICD and severe pulmonary hypertension. Patient presented to the ER complaining of shortness of breath which has been going on for some time. Her symptoms been progressively worsening especially when lying flat. She is now experiencing chest pain and cough. Patient denies any lower extremity edema. She also denies any fever or chills. She arrived in the ER with elevated troponin in the 600 range. Her troponin has been chronically elevated since 2022. Her BNP is 8211. EKG shows left bundle branch block. During my evaluation, patient appeared euvolemic. She is on room air and hemodynamically stable. Her chest x-ray shows right basilar infiltrates and possible COPD. Hospital Course: Patient was admitted for ACS rule out. Her troponin stabilized. During the day of admission, she was chest pain-free. Patient was very anxious to leave. Cardiology has recommended outpatient follow-up with her primary licensed dispensing optician. She follows up with Dr. Cuenca at [facility]. She will need to see her licensed dispensing optician within a week. Vital Signs/Physical Exam: Temp Pulse Resp BP Pulse Ox 98.5 F 91 H 18 119/71 100 07/11/25 12:00 07/11/25 12:00 07/11/25 12:00 07/11/25 12:00 07/11/25 12:00 General: Alert, In no apparent distress, Cooperative HEENT: Atraumatic, Normocephalic Respiratory: Clear to auscultation bilaterally, Normal air movement Cardiovascular: No edema, Normal pulses, Regular rate/rhythm, Normal S1 S2 Neurological: Normal speech Laboratory Data at Discharge: WBC 6.60 thou/uL (4.3-10.9) 07/11/25 06:58 Hgb 12.0 g/dL (12.0-15.0) 07/11/25 06:58 Hct 36.4 % (36.0-45.0) 07/11/25 06:58 Plt Count 189 thou/uL (152-406) 07/11/25 06:58 PT 12.8 SECONDS (10-13.0) 07/11/25 06:58 INR 1.14 07/11/25 06:58 APTT 27.8 SECONDS (27.2-37.4) 07/11/25 06:58 Sodium 141 mEq/L (136-145) 07/11/25 06:58 Potassium 3.7 mEq/L (3.5-5.1) 07/11/25 06:58 BUN 10 mg/dL (7-18) 07/11/25 06:58 Creatinine 0.70 mg/dL (0.55-1.02) 07/11/25 06:58 Glucose 103 mg/dL (74-106) 07/11/25 06:58 Phosphorus 3.1 mg/dL (2.5-4.9) 07/11/25 06:58 Magnesium 2.2 mg/dL (1.6-2.4) 07/11/25 06:58 Triglycerides 90 mg/dL (<150) 07/11/25 06:58 Cholesterol 173 mg/dL (<200) 07/11/25 06:58 HDL Cholesterol 34 mg/dL (40-60) L 07/11/25 06:58 Cholesterol/HDL Ratio 5.09 07/11/25 06:58 Home Medications: Furosemide [Lasix] 1 tab PO DAILY PRN 02/11/23 Potassium Oral Tab [Klor-Con 10 mEq Tab*] 2 tab PO DAILY PRN 02/11/23 Propranolol [Inderal*] 10 mg PO BID PRN #60 tab 02/14/23 dilTIAZem HCL [Cardizem Cd] 240 mg PO DAILY #30 cap 02/14/23 Ergocalciferol (Vitamin D2) [Vitamin D 50,000 Unit Cap] 50,000 unit PO DIRECTED 07/10/25 Ibandronate Sodium [Boniva] 150 mg PO DIRECTED 07/10/25 Tamoxifen Citrate 20 mg PO DAILY 07/10/25 Aspirin [Aspirin EC 81 MG] 81 mg PO DAILY #30 tab 07/11/25 Atorvastatin Calcium [Lipitor] 80 mg PO BEDTIME #30 tab 07/11/25 Benzonatate [Tessalon Perle*] 100 mg PO TID PRN #10 cap 07/11/25 New Medications: Aspirin [Aspirin EC 81 MG] 81 mg PO DAILY #30 tab Atorvastatin Calcium [Lipitor] 80 mg PO BEDTIME #30 tab Benzonatate [Tessalon Perle*] 100 mg PO TID PRN #10 cap PRN Reason: Cough Followup: Paula Sultana, ADONIS [Primary Care Provider] - MELVIN CUENCA [OUTSIDE PHYSICIAN] -
--- NOTE | 2025-07-11 14:25 | ECHO ---
HEIGHT: 5 ft 3 in WEIGHT: 115 lb 0 oz DATE OF STUDY: 07/11/[address]: Prince Delonte Johnson MD 2-DIMENSIONAL: YES M.MODE: YES DOPPLER: YES COLOR FLOW: YES TDS: PORTABLE: YES DEFINITY: BUBBLE STUDY: DIAGNOSIS: CONGESTIVE HEART FAILURE CARDIAC HISTORY: CATHERIZATION: YES SURGERY: NO PROSTHETIC VALVE: NO PACEMAKER: DEFIBRILLATOR MEASUREMENTS (cm) DIASTOLIC (NORMALS) SYSTOLIC (NORMALS) IVSd 1.3 (0.6-1.2) LA Diam 5.9 (1.9-4.0) LVEF 40-45% LVIDd 5.3 (3.5-5.7) LVIDs 3.6 (2.0-3.5) %FS 31% LVPWd 1.3 (0.6-1.2) Ao Diam 3.0 (2.0-3.7) 2 DIMENSIONAL ASSESSMENT: RIGHT ATRIUM: NORMAL LEFT ATRIUM: SEVERELY DILATED RIGHT VENTRICLE: NORMAL LEFT VENTRICLE: DEPRESSED EJECTION FRACTION TRICUSPID VALVE: MILD TRICUSPID REGURGITATION MITRAL VALVE: MILD MITRAL REGURGITATION PULMONIC VALVE: MILD PULMONIC INSUFFICIENCY AORTIC VALVE: NORMAL PERICARDIAL EFFUSION: NONE AORTIC ROOT: NORMAL LEFT VENTRICULAR WALL MOTION: MILD GLOBAL HYPOKINESIS DOPPLER/COLOR FLOW: SEE BELOW COMMENTS: 1. MILDLY DEPRESSED LEFT VENTRICULAR EJECTION FRACTION 40-45% 2. MILD GLOBAL HYPOKINESIS 3. MILD MITRAL REGURGITATION 4. DIASTOLIC DYFUNCTION 5. SEVERE LEFT ATRIAL ENLARGEMENT 6. SEVERE PULMONARY HYPERTENSION WITH RIGHT VENTRICULAR SYSTOLIC PRESSURE GREATER THAN 60 mmHg TECHNOLOGIST: CHUCK ROSAS [facility]
--- NOTE | 2025-07-11 16:57 | CON ---
Date of Consultation: 07/11/2025 Reason For Consultation: Elevated troponin. History Of Present Illness: 54-year-old female, known to have hypertrophic cardiomyopathy, status po st ICD placement, severe pulmonary hypertension, presented to the emergency room with shortness of br eath, orthopnea, and lower extremity edema. Could not lie flat. Denied having any chest pain, no co ugh, and she was started on IV diuretics. Feels much better. Denies having any chest pain. Troponi n was elevated, however, no significant delta, and remained stable, and she does have a car stereo installer that she follows up with in [place] and had a stress test within the past few months that was normal that was as per her report. Past Medical History: As outlined above in the HPI. Medications: Refer to reconciliation sheet for detailed list. Allergies: NO KNOWN DRUG ALLERGIES. Family History: No premature coronary artery disease or cancer. Social History: Does not drink or use any drugs. Review of Systems: All systems reviewed and they were negative except as mentioned in the HPI. Physical Examination: Vital Signs: Reviewed. Head and Neck: Pupils are equal, reactive to light. Intact eye movements. Mildly elevated JVD. Lungs: Decreased breathing sounds bilaterally. No accessory muscle use or muscle retraction. Heart: Regular rate and rhythm. No extra sounds. Abdomen: Soft, nontender. Bowel sounds positive. No organomegaly. No masses or hernia. No rigidi ty or rebound. Extremities: No clubbing or cyanosis. Trace edema. Neurologic: Alert, awake, and oriented x3. No acute focal deficits appreciated. Investigations: BUN 10, creatinine 0.7, troponin is 744, has been around that range since admission, and hemoglobin is 12. Assessment And Recommendations: 1. Elevated troponin, but no active chest pain. She is known to have hypertrophic cardiomyopathy and she is in acute exacerbation of congestive heart failure. I recommend IV diuretics. Her right vent ricular systolic pressure is very high, and monitor BUN, creatinine, and electrolytes. As far as the troponin elevation, since the patient is asymptomatic and there is no significant delta in the tropo mustapha, this could potentially be demand ischemia and she said that she had a stress test within the pas t few months that was normal, and she is following up with car stereo installer. The fact that she is sympto ms free, the patient can be followed up with her primary car stereo installer early next week upon discharge. Recommend diuretics for now and monitoring of her troponin further. 2. Congestive heart failure with acute exacerbation. Recommend IV diuretics with Lasix 40 mg q.12 ho urs, and monitor BUN, creatinine, and electrolytes. Thank you for the consult. /GAB Voice ID: [id number] Report ID: [id number]
[2025-07-12] MEDS ORDERED: TAMOXIFEN CITRATE 20 MG PO SCH (09:00)
[2025-07-14] MEDS ORDERED: DRISDOL (VITAMIN D=ERGOCALCIFEROL) 50000 UNIT CAP PO SCH (09:00)
== END 2025-07-11 15:09 | disposition home or self-care (01) | DRG 280 ==
LOC: ER 13:43 → ERHOLD 15:14 → 4TH 16:57
PROVIDERS: ADMIT Internal Medicine; ATTEND Internal Medicine
DX: I50.23 Acute on chronic systolic (congestive) heart failure (principal); J18.9 Pneumonia, unspecified organism; I21.A1 Myocardial infarction type 2; J96.01 Acute respiratory failure with hypoxia; J44.0 Chronic obstructive pulmonary disease with (acute) lower respiratory infection; I42.1 Obstructive hypertrophic cardiomyopathy; I44.7 Left bundle-branch block, unspecified; I25.2 Old myocardial infarction; Z85.3 Personal history of malignant neoplasm of breast; Z90.11 Acquired absence of right breast and nipple; Z79.82 Long term (current) use of aspirin; Z95.810 Presence of automatic (implantable) cardiac defibrillator; Z79.899 Other long term (current) drug therapy
CPT/HCPCS: 36415; 71045; 80048; 80061; 82947; 83735; 83880; 84100; 84484; 85025; 85610; 85730; 93005; 93306; 96365; 99285; J0295; J1644; J1650; J1938